=== PATIENT | female | born 1945 | race Caucasian/White ===

== ENCOUNTER → 2020-09-26 09:10 | Outpatient (BNVA) | payer MEDICARE, SELFPAY | PROVIDERS: PCP Internal Medicine; Referring Provider Internal Medicine; Visit Provider Orthopaedic Surgery | DX: Z47.89 Encounter for other orthopedic aftercare (principal); M19.012 Primary osteoarthritis, left shoulder | CPT/HCPCS: 99212 ==

== ENCOUNTER 2025-02-08 08:30 | Outpatient (REF) | payer MEDICARE, SELFPAY ==
--- NOTE | ~2025-02-08 | XR_ITS ---
EXAMINATION: XR WRIST 3 OR MORE VIEWS LEFT HISTORY: M19.012 - Primary osteoarthritis COMPARISON: There are no prior studies available for comparison. FINDINGS: Three views of the left wrist are submitted. Osseous mineralization is normal. There is no fracture or dislocation. The joint spaces are preserved. There is a soft tissue calcification adjacent to the ulnar styloid. XR/XR wrist LT min 3V IMPRESSION: No evidence of fracture or significant degenerative change of the left wrist. Electronically signed by: Nathan Chavez MD 02/08/2025 11:38 AM EDT
--- NOTE | ~2025-02-08 | XR_ITS ---
EXAMINATION: XR SHOULDER 2 OR MORE VIEWS LEFT HISTORY: M25.519 - Pain in unspecified shoulder COMPARISON: Comparison is made with the prior examination dated 05/30/2020. FINDINGS: Three views of the left shoulder are submitted. Osseous mineralization is normal. There is no fracture or dislocation. Again seen is severe osteoarthritis of the glenohumeral joint with joint space narrowing and osteophyte formation. There is mild to moderate osteoarthritis of the AC joint. The soft tissues are unremarkable. 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 Electronically signed by: Nathan Chavez MD 02/08/2025 03:41 PM EDT
== END 2025-02-08 08:31 | disposition home or self-care (01) ==
LOC: HO.HOSX 08:30
PROVIDERS: PCP Internal Medicine; Visit Provider Orthopaedic Surgery
DX: M19.012 Primary osteoarthritis, left shoulder (principal); M25.519 Pain in unspecified shoulder
CPT/HCPCS: 20610; 73030; 73110; 99202; J0665; J1100; J2003

== ENCOUNTER 2025-02-08 08:30 | Outpatient (AMB) | payer MEDICARE, SELFPAY ==
--- NOTE | 2025-02-08 08:33 | MHC.OFFVIS ---
Vital Signs 02/08/25 08:51 Height 5 ft 4 in Weight 180 lb BMI 30.9 Intake Visit Reasons: New Pt - Hx of Left shoulder 07/03/20 Intake Note: Cady is a 79 year old left hand dominant female who presents today as a new patient with complaints of Left shoulder pain. Hx of Left shoulder Arthroscopy 07/03/2020 NE. Patient reports that she did have relief after the surgery. Her pain returned about 6 months ago. Denies any injury. She has increased pain with ROM and worse at the end of the day. She takes Tylenol / Ibuprofen PRN Pain. Allergies No Known Allergies [No Known Allergies*] Allergy (Unverified 02/08/25 08:54) SEASONAL Allergy (Unknown, Uncoded 02/08/25 08:54) Unknown HPI HPI New Pt - Hx of Left shoulder 07/03/20: Details: 79 yo with right shoulder OA who underwent a shoulder in 2019. THis was helpful but her pain and motion have been worsening over the past year. She has difficuolty raising her right hand to her mouth. 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 She has pain at night. [facility] Medical History (Updated 02/08/25 @ 08:39 by Nimesh Tolliver MD) Primary osteoarthritis, left shoulder Hypertension Loose body in left shoulder Surgical History (Updated 09/26/20 @ 09:17 by KELLY Rooney) S/P arthroscopy of left shoulder (~07/03/20) Family History (Updated 09/25/20 @ 15:05 by Mya Morataya CMA) Father No problems noted. Mother No problems noted. Social History (Updated 09/25/20 @ 15:06 by Mya Morataya CMA) Current occupational status: retired Current occupation: Right Handed Physical Exam Vital Signs: BMI result Body Mass Index 30.9 Extrem Other: 70/100 neg lift off neg EC Office Procedures Joint Inj/Aspir; Non-Pain Clin Joint Injection/Drain Details: Injected 1 mL of Decadron and 3 mL 1% lidocaine and 3 mL of 0.25% Marcaine. Site was prepped using aseptic technique. Patient tolerated the procedure well. Shoulders, Hips, Knees, Shoulder Injection Large joint 26836: Left Shoulder Coding Procedure code (CPT) selection complete Results Reviewed Results Reviewed: I personally reviewed relevant radiographs. Severe left shoulder OA I personally reviewed the MR images. Assessment & Plan Assessment & Plan (1) Primary osteoarthritis, left shoulder: Code(s): M19.012 - Primary osteoarthritis, left shoulder Category: Medical Plan: Cady is an active 79 yo with Shoulder OA. She is active and a regular bowler. We discussed reatment options. We discussed surgery which would be a shoulder arthroplasty. She wants to be able to bowl in July and I think that might be too soon if we were to operate in April. I discussed injections which whe would like and so we injected her left shoulder. She will follow up with me in 3 months. Orders: Orders XR wrist LT min 3V 02/08/25 M19.012 - Primary osteoarthritis, left shoulder XR shoulder LT min 2V 02/08/25 M25.519 - Pain in unspecified shoulder Coding Level of Care Code New Pt Level 3 (57824) Diagnoses Primary osteoarthritis, left shoulder M19.012 CPT Codes Shoulders, Hips, Knees, - Shoulder Injection Large joint : Left Shoulder ([id number])
--- OUTSIDE RECORDS SUMMARY | 2025-02-08 08:47 | XMS_ITS | Clinical Summary ---
Author Organization [employer] Address [address] [place] [address] Care Team Providers Care Band Nailer Name Role Phone Unavailable Primary Care Provider Unavailabl e Social History Tobacco Use Types Packs/Day Years Used Date Smoking Tobacco: Never Assessed Comments Unknown Sex and Gender Information Value Date Recorded Sex Assigned at Not on file Legal Sex Female 9:13 AM EDT Gender Identity Not on file Sexual Orientation Not on file Plan of Treatment Health Maintenance Due Date Last Done Comments Depression Screening 1945 Lipid Panel 1945 SDOH Screening 1945 Alcohol/Substance Use Screening 1957 Tobacco Screening 1957 Hepatitis C Screening 1963 DTaP/Tdap/Td Vaccines (1 - Tdap) 1964 Pneumococcal Vaccine: 50+ Years (1 of 1 - PCV) 1995 Zoster Vaccines (1 of 2) 1995 RSV Patients and Patients Aged 60 years or older (1 - 1-dose 75+ series) 2020 COVID-19 Vaccine ( - season) 2024 10/06/2022, 01/21/2021, 12/30/2020 Influenza Vaccine (#1) 2024 3, 08/20/2022, 07/25/2021, Additional history exists HIB Vaccines Aged Out No longer eligi ble based on patient's age to complete this topic HPV Vaccines Aged Out No longer eligi ble based on patient's age to complete this topic Hepatitis A Vaccines Aged Out No long er eligible based on patient's age to complete this topic Hepatitis B Vaccines Aged Out No long er eligible based on patient's age to complete this topic IPV Vaccines Aged Out No longer eligi ble based on patient's age to complete this topic Meningococcal Vaccine Aged Out No sid payton eligible based on patient's age to complete this topic RSV under 20 months Aged Out No longe r eligible based on patient's age to complete this topic Rotavirus Vaccines Aged Out No longer eligible based on patient's age to complete this topic Insurance [facility] [place] [address]
--- OUTSIDE RECORDS SUMMARY | 2025-02-08 08:47 | XMS_ITS | Clinical Summary ---
Author Organization [facility] Address [address] [place] [address] Care Team Providers Care Bulking Machine Operator Name Role Phone Cornelius Hughes MD Primary Care Provider [phone] Allergies Active Allergy Reactions Criticality Noted Date Comments Seasonal 03/29/2019 Medications Medication Sig Dispensed Refills Start Date End Date Status lisinopril-hydroCHLOROt hiazide (PRINZIDE,ZESTORETIC) tablet 10-12.5 mg 0 01/04/2019 Active Guwtrtikhvn-Zasyjnieu-R it C-Mn (GLUCOSAMINE 1500 COMPLEX PO) Take by mouth. 0 Acti ve fexofenadine (TOMASA ALLERGY) 180 MG tablet Take 180 mg by mouth daily. 0 Active Misc Natural Products (LUTEIN 20 PO) Take by mouth. 0 Active Active Problems Problem Noted Date Diagnosed Date Wart left hand 06/05/2020 Impingement syndrome of left shoulder region Right carpal tunnel syndrome 03/29/2019 Ganglion cyst of flexor tendon sheath of ring fi nger, right 02/01/2019 Resolved Problems Problem Noted Date Diagnosed Date Resolved Date Adhesive capsulitis of left shoulder 04/19/2019 07/20/2019 Trigger finger, left ring finger 02/01/2019 06/05/2020 Left carpal tunnel syndrome 02/01/2019 06/05/2020 Social History Tobacco Use Types Packs/Day Years Used Date Smoking Tobacco: Never Smokeless Tobacco: Never Alcohol Use Standard Drinks/Week Comments No 0 (1 standard drink = 0.6 oz pur e alcohol) Sex and Gender Information Value Date Recorded Sex Assigned at Not on file Gender Identity Not on file Sexual Orientation Not on file Last Filed Vital Signs Vital Sign Reading Time Taken Comments Blood Pressure - - Pulse - - Temperature - - Respiratory Rate - - Oxygen Saturation - - Inhaled Oxygen Concentration - - Weight 84.8 kg (187 lb) 07/20/2019 8:28 AM EDT Height 162.6 cm (5' 4 ) 07/20/2019 8:28 AM EDT Body Mass Index 32.1 07/20/2019 8:28 AM EDT Plan of Treatment Health Maintenance Due Date Last Done Comments Hepatitis C Screening 1945 COVID-19 Vaccine (#1) 05/31/1946 Depression Screening 1957 BMI Counseling 1963 Preventative Health Evaluation 1963 DTap / Tdap / Td (1 - Tdap) 1964 Shingrix-Zoster Vaccine (1 of 2) 1995 Fall Risk Assessment 2010 Osteoporosis Screening (DEXA Scan) 2010 Pneumococcal Vaccine (1 of 1 - PCV) 2010 RSV Adult > 60+ Yrs or Pregn ant (1 - 1-dose 75+ series) 2020 Influenza Vaccine (#1) 2024 Hepatitis B Vaccines Aged Out No long er eligible based on patient's age to complete this topic RSV Ped < 20 months Aged Out No longe r eligible based on patient's age to complete this topic Care Teams Bulking Machine Operator Relationship Specialty Start Date End Date Cornelius Hughes MD [address] [address] PCP - General Internal Medicine 01/17/19
--- OUTSIDE RECORDS SUMMARY | 2025-02-08 08:47 | XMS_ITS | Clinical Summary ---
Author Organization [facility] Address [address] [place] [address] Phone Care Team Providers Care Call Center Consultant Name Role Phone Jimenez Snow MD Primary Care Provider Allergies Active Allergy Reactions Criticality Noted Date Comments Other Low 11/19/2023 Seasonal Allergies Medications ibuprofen (ADVIL,MOTRIN) 200 mg tablet Take 1 Tablet by mouth every 6 hours as needed. Active acetaminophen (TYLENOL) 325 mg tablet Take 2 Tablets by mouth every 6 hours as needed. Active hydroCHLOROthia zide 12.5 mg tablet Take 1 tablet (12.5 mg total) by mouth 1 (one) time each day. 90 tablet 1 11/02/2024 Active cholecalciferol (Vitamin D3) 50 mcg (2,000 unit) tablet Take 2 tablets (4,000 Units total) by mouth 1 (one) time each day. 180 tablet 1 11/08/2024 Active Active Problems Problem Noted Date Diagnosed Date Sleep apnea 12/18/2024 CPAP (continuous positive airway pressure) luis e doty 12/18/2024 Prediabetes 11/08/2024 Hypercholesterolemia 11/08/2024 Elevated alkaline phosphatase level 11/08/2024 Vitamin D insufficiency 11/08/2024 Obesity (BMI 30.0-34.9) 08/30/2024 Alkaline phosphatase elevation 03/02/2023 Anxiety 03/02/2023 Impaired fasting glucose 03/02/2023 Mixed hyperlipidemia 03/02/2023 Osteopenia 03/02/2023 Primary hypertension 03/02/2023 Pituitary adenoma 03/02/2023 Encounters Date Type Department Care Team Description 12/19/2024 Telephone Gastroenterology - [address] [facility] [address] [place] [address] [place] 12/18/2024 10:07 AM EST Anesthesia Event [facility] Endoscopy [address] [place] [address] Anastasiia Bender MD Abrokwah, Foster Myles G, INCINERATOR OPERATOR 12/18/2024 8:59 AM EST - 12/18/2024 11:59 PM EST Hospital Encounter [facility] Endoscopy [address] [place] [address] Moon Hussein MD Dasilva, Alen Ellis MD Hx of colonic polyps Discharge Disposition: Home or Self Care from Last 3 Months Immunizations Name Administration Dates Next Due Influenza trivalent, 0.5mL (Fluad) 65yo and olde r 08/20/2022,07/25/2021 Influenza trivalent, 0.5mL, preservative free (Fluarix; FluLaval; Fluzone) ages 6mo and older (Afluria) 3 years and older 07/31/2020 Influenza, Unspecified 08/03/2023 Pfizer (ages 12 & older) Bivalent, COVID-19 09/22 Pfizer SARS-CoV-2 COVID-19, mRNA, LNP-S, preservative free 01/21/2021,12/30/2020 Surgical History Surgery Date Site/Laterality Comments OTHER SURGICAL HISTORY PROCEDURE: HISTORY OTHER; COMMENT: carpal tunnel left side OTHER SURGICAL HISTORY PROCEDURE: HISTORY OTHER; COMMENT: shoulder surgery of the left side BREAST BIOPSY Left PROCEDURE: BX BREAST; PERC NEEDLE CORE W/IMAG GUID; COMMENT: cyst years ago Medical History Medical History Date Comments Essential (primary) hypertension DX:Essential (primary) hypertension HLD (hyperlipidemia) DX:HLD (hyp erlipidemia) Impaired fasting blood sugar DX: Impaired fasting blood sugar Anxiety disorder DX:Anxiety diso rder Osteopenia DX:Osteopenia Pituitary adenoma (CMS/HCC) DX:P ituitary adenoma (HCC) Alkaline phosphatase elevation D X:Alkaline phosphatase elevation Family History Medical History Relation Name Comments Arthritis Father Other: alzheimer Father Heart attack Mother Stroke Mother Other: meningioma Sister Relation Name Status Comments Father Mother Sister Social History Tobacco Use Types Packs/Day Years Used Date Smoking Tobacco: Never Smokeless Tobacco: Never Tobacco Cessation:Counseling Given: Not Answered Alcohol Use Standard Drinks/Week Comments Never 0 (1 standard drink = 0.6 oz pur e alcohol) Housing Instability Answer Date Recorde d Are you worried that in the next 2 months you may not have stable housing? No 11/02/2024 Food Access & Nutrition Answer Date Rec orded Do you have access to a vari ety of food including fruits and vegetables? Yes 11/02/2024 Access to Healthcare Answer Date Record ed Within the last 3 months, ho w many times did you visit the emergency department for your medical care? 0 11/02/2024 Health Literacy Answer Date Recorded How often do you need to hav e someone help you when you read instructions, pamphlets, or other written material from your doctor or pharmacy? Never 11/02/2024 Caregiver: How often do you need to have someone help you when you read instructions, pamphlets, or other written material from your doctor or pharmacy? Not on file 11/02/2024 Financial Risk Answer Date Recorded How hard is it for you to pa y for the very basics like food, housing, medical care, and air conditioning / heating? Somewhat hard 11/02/2024 Transportation Answer Date Recorded Has the lack of transportati on kept you from meetings, work, or from getting things needed for daily living? No Has the lack of transportati on kept you from medical appointments or from getting medications? No 11/02/2024 Social Isolation Answer Date Recorded How often do you feel lonely or isolated from those around you? Sometimes 11/02/2024 Food Risk Answer Date Recorded Within the past 12 months we worried whether our food would run out before we got money to buy more. Not asked 024 Within the past 12 months th e food we bought just didn't last and we didn't have money to get more. Sometimes true 11/02/2024 Dependent Care Answer Date Recorded Do you need help finding or paying for care for your loved ones. For example, child and youth program assistant or elderly care for an older adult? No 11/02/2024 Education Answer Date Recorded Do you think completing more education or training, like finishing a GED, going to college, or learning a trade, would be helpful for you? N/A 11/02/2024 Employment and Income Answer Date Recor ded During the last four weeks, have you been actively looking for work? No 11/02/2024 Living Situation Answer Date Recorded What is your living situation? 1 01/03/2024 Interpersonal Safety Answer Date Record ed Physical Abuse 12/18/2024 Verbal Abuse 12/18/2024 Comments No Sex and Gender Information Value Date Recorded Sex Assigned at Female 12/07/2024 8:43 AM EST Legal Sex Female 9:56 AM EST Gender Identity Female 12/07/2024 8:43 AM EST Sexual Orientation Straight 12/07/2024 8: 43 AM EST Obstetrics History Para Term AB IAB SAB Ectopic Multiple Livin g Live Births 0 0 0 0 Last Filed Vital Signs Vital Sign Reading Time Taken Comments Blood Pressure 135/75 12/18/2024 10:47 AM EST Pulse 62 12/18/2024 10:47 AM EST Temperature 36.4 ??C (97.6 ??F) 12/18/2024 10:[address] Respiratory Rate 18 12/18/2024 10:47 AM EST Oxygen Saturation 94% 12/18/2024 10:47 AM EST Inhaled Oxygen Concentration - - Weight 83.9 kg (185 lb) 12/18/2024 9:40 AM EST Height 162.6 cm (5' 4 ) 12/18/2024 9:40 AM EST Body Mass Index 31.76 12/18/2024 9:40 AM EST Plan of Treatment Upcoming Encounters Date Type Department Care Team (Late st Contact Info) Description 05/03/2025 9:30 AM EDT Office Visit Adult Medicine [facility] [address] [place] [address] Jimenez Snow MD [address] [place] [address] Health Maintenance Due Date Last Done Comments Medicare Annual Wellness Visit 10/25/2022 Osteoporosis Screening (Bone Density Screening) 08/24/2025 08/24/2023, 08/14/2021 Depression Screening 11/02/2025 11/02/2024 Social Influencers of Health Screening 11/02/2025 11/02/2024 Hypertension/CHF/CAD Annual BMP Blood Test 11/08/2025 11/08/2024, 05/19/2024, 05/19/2024 Falls Risk Assessment 12/18/2025 12/18/2024 Cholesterol Screening (Lipid Panel) 11/08/2029 11/08/2024, 05/19/2024, 05/19/2024 COVID-19 Vaccine Completed 08/03/2024, , 10/06/2022, Additional history exists Influenza Vaccine Completed 08/03/2024, , 08/03/2023, Additional history exists Hepatitis C Screening Completed 11/08/2024 DTaP,Tdap,and Td Vaccines Discontinued HIB Vaccines Aged Out No longer eligi [...] on patient's age to complete this topic MMR Vaccines Aged Out No longer eligi ble based on patient's age to complete this topic Meningococcal ACWY Vaccine Aged Out N o longer eligible based on patient's age to complete this topic Meningococcal B Vacine Aged Out No lo nger eligible based on patient's age to complete this topic Pneumococcal Vaccine: 50+ Years Discontinued RSV Immunization Patients 60+ Years Old Discontinued RSV Immunization Patients Under 20 months Aged Out No longer eligible based on patient's age to complete this topic Varicella Vaccines Aged Out No longer eligible based on patient's age to complete this topic Zoster Vaccines Discontinued Procedures Procedure Name Priority Date/Time Associated Diagnosis Comments COLONOSCOPY Routine 12/18/2024 10:26 AM EST Hx of colonic polyps TISSUE EXAM Routine 12/18/2024 10:19 AM EST Hx of colonic polyps HEPATITIS C ANTIBODY Routine 11/08/2024 9:50 AM EST Need for hepatitis C screening test COMPREHENSIVE METABOLIC PANEL Routine 11/08/2024 9:50 AM EST Primary hypertension LIPID PANEL WITH REFLEX TO DIRECT LDL Routine 11/08/2024 9:50 AM EST Primary hypertension DXA BONE DENSITY STUDY 1+ SITS AXIAL SKEL Routine 08/24/2023 9:46 AM EDT Other specified disorders of bone density and structure, unspecified site from Last 3 Months or Most Recently Relevant to Health Maintenance Results * COLONOSCOPY Anesthesia - MAC; [facility] ENDOSCOPY (12/18/2024 10:26 AM EST) Anatomical Region Laterality Modality Other 12/18/2024 10:0 5 AM EST Impressions 12/18/2024 10:28 AM EST - The examined portion of the ileum was normal. ? - One 3 mm polyp in the ascending colon, removed with ? a cold snare. Resected and retrieved. ? - Diverticulosis in the sigmoid colon. ? - Internal hemorrhoids. Recommendation: ?- Await pathology results. ? - Repeat colonoscopy is not recommended for ? surveillance. Narrative 12/18/2024 10:28 AM EST [facility] GI Patient Name: Cady Martinez Procedure Date: 12/18/2024 10:05 AM Date of : 1945 Age: 79 Gender: Female Note Status: Finalized Attending MD: Moon Hussein MD, Procedure Date No Time: 12/18/2024 Procedure: ? Colonoscopy Indications: ? High risk colon cancer surveillance: Personal history ? of colonic polyps Providers: ? Moon Hussein MD Referring MD: ?ARNIE Lugo Medicines: ? Propofol per Anesthesia Complications: ? No immediate complications. Estimated Blood Loss: ? Estimated blood loss: none. Procedure: ? Pre-Anesthesia Assessment: ? - ASA Grade Assessment: III - A patient with severe ? systemic disease. ? After I obtained informed consent, the scope was ? passed under direct vision. Throughout the procedure, ? the patient's blood pressure, pulse, and oxygen ? saturations were monitored continuously.The Olympus ? Pediatric Colonoscope was introduced through the anus ? and advanced to the terminal ileum. The colonoscopy ? was performed without difficulty. The patient ? tolerated the procedure well. The quality of the bowel ? preparation was good. Findings: ?The perianal and digital rectal examinations were ? normal. ? The terminal ileum appeared normal. ? A 3 mm polyp was found in the ascending colon. The ? polyp was sessile. The polyp was removed with a cold ? snare. Resection and retrieval were complete. ? Multiple small-mouthed diverticula were found in the ? sigmoid colon. ? Internal hemorrhoids were found during retroflexion. ? The hemorrhoids were Grade I (internal hemorrhoids ? that do not prolapse). Procedure Code(s): ? --- Professional --- ? 04391, Colonoscopy, flexible; with removal of ? tumor(s), polyp(s), or other lesion(s) by snare ? technique Diagnosis Code(s): ? --- Professional --- ? Z86.010, Personal history of colonic polyps ? D12.2, Benign neoplasm of ascending colon CPT copyright 2020 [employer]. All rights reserved. The codes documented in this report are preliminary and upon medical coder review may be revised to meet current compliance requirements. Moon Hussein MD 12/18/2024 10:28:45 AM This report has been signed electronically.Moon Hussein MD Number of Addenda: 0 Note Initiated On: 12/18/2024 10:05 AM Scope In: Scope Out: ? Endoscopy Department at [facility] - [address] [place] [address], ? [place] [address] Procedure Note Moon Hussein MD - 12/18/2024 [facility] GI Patient Name: Cady Martinez Procedure Date: 12/18/2024 10:05 AM Date of : 1945 Age: 79 Gender: Female Note Status: Finalized Attending MD: Moon Hussein MD, Procedure Date No Time: 12/18/2024 Procedure: Colonoscopy Indications: High risk colon cancer surveillance: Personalhistory of colonic polyps Providers: Moon Hussein MD Referring MD: ARNIE Lugo Medicines: Propofol per Anesthesia Complications: No immediate complications. Estimated Blood Loss: Estimated blood loss: none. Procedure: Pre-Anesthesia Assessment: - ASA Grade Assessment: III - A patient with severe systemic disease. After I obtained informed consent, the scope was passed under direct vision. Throughout theprocedure, the patient's blood pressure, pulse, and oxygen saturations were monitored continuously.The Olympus Pediatric Colonoscope was introduced through theanus and advanced to the terminal ileum. The colonoscopy was performed without difficulty. The patient tolerated the procedure well. The quality of thebowel preparation was good. Findings: The perianal and digital rectal examinations were normal. The terminal ileum appeared normal. A 3 mm polyp was found in the ascending colon. The polyp was sessile. The polyp was removed with acold snare. Resection and retrieval were complete. Multiple small-mouthed diverticula were found inthe sigmoid colon. Internal hemorrhoids were found duringretroflexion. The hemorrhoids were Grade I (internal hemorrhoids that do not prolapse). Procedure Code(s): --- Professional --- 43959, Colonoscopy, flexible; with removal of tumor(s), polyp(s), or other lesion(s) by snare technique Diagnosis Code(s): --- Professional --- Z86.010, Personal history of colonic polyps D12.2, Benign neoplasm of ascending colon CPT copyright 2020 [employer]. All rights reserved. The codes documented in this report are preliminary and upon medical coder reviewmay be revised to meet current compliance requirements. Moon Hussein MD 12/18/2024 10:28:45 AM This report has been signed electronically.Moon Hussein MD Number of Addenda: 0 Note Initiated On: 12/18/2024 10:05 AM Scope In: Scope Out: Endoscopy Department at [facility] - [address] [place] [id number] IMPRESSION: - The examined portion of the ileum was normal. - One 3 mm polyp in the ascending colon, removedwith a cold snare. Resected and retrieved. - Diverticulosis in the sigmoid colon. - Internal hemorrhoids. Recommendation: - Await pathology results. - Repeat colonoscopy is not recommended for surveillance. Moon Hussein MD GI~PROCEDURE ORDERABLES Final Result * Tissue exam (12/18/2024 10:19 AM EST) Final Diagnosis Ascending Colon, polyp: Tubular adenoma. 12/19/2024 10:43 AM EST [facility] LAB Gross Description A. Large Intestine, Right/Ascending Colon, polyp: Labeled ascend colon polyp . Received in formalin, is an approximately 0.2 cm, in greatest diameters, soft to rubbery, mckeon, polypoid tissue, which is inked black at the base, admixed with possible food/fecal debris. The specimen is wrapped in paper and submitted in toto in one cassette, one piece, multiple levels. dvb/DG 12/19/2024 10:43 AM EST [facility] Disclaimer Unless otherwise specified, all tissue is 10% NB formalin fixed and paraffin embedded. 12/19/2024 10:43 AM EST [facility] Tissue Ascending colon structure / Unknown 12/18/2024 10:19 AM EST 12/18/2024 12:41 PM EST Moon Hussein MD LAB PATHOLOGY ORDERABLES Final Result Performing Organization Address City/[facility]/ZIP Co de Phone Number [facility] [address] [place] [address], [place] [phone] * Hepatitis C antibody (11/08/2024 9:50 AM EST) [facility] Hepatitis C Antibody Negative Negative LAB CHEMISTRY METHOD 11/08/2024 1:08 PM [facility] Blood Venous blood specimen / Unknown Venipuncture / Unknown 11/08/2024 9:50 AM EST 11/08/2024 9:50 AM EST Jimenez Snow MD LAB BLOOD ORDERABLES F inal Result Performing Organization Address City/[facility]/ZIP Co de Phone Number [facility] [address] [place] [address], [place] [phone] * (ABNORMAL) Lipid panel with reflex to direct LDL (11/08/2024 9:50 AM EST) Pathologist [facility] Cholesterol 237(H) 0 - 200 mg/dL LAB CHEMISTRY METHOD 11/08/2024 1:03 PM [facility] Triglycerides 96 0 - 150 mg/dL LAB CHEMISTRY METHOD 11/08/2024 1:03 PM [facility] HDL 90 >=40 mg/dL LAB CHEMISTRY METHOD 11/08/2024 1:03 PM [facility] LDL Calculated 128(H) 0 - 100 mg/dL LAB CHEMISTRY METHOD 11/08/2024 1:03 PM [facility] VLDL Cholesterol Sam 19.2 mg/dL LAB CHEMISTRY METHOD 11/08/2024 1:03 PM [facility] Non HDL Chol. (LDL+VLDL) 147(H) <145 mg/dL LAB CHEMISTRY METHOD 11/08/2024 1:03 PM [facility] Chol/HDL Ratio 2.6 0.0 - 4.4 LAB CHEMISTRY METHOD 11/08/2024 1:03 PM [facility] Blood Venous blood specimen / Unknown Venipuncture / Unknown 11/08/2024 9:50 AM EST 11/08/2024 9:50 AM EST us Jimenez Snow MD LAB BLOOD ORDERABLES F inal Result [facility] [address] [place] [address], [place] [phone] * (ABNORMAL) Comprehensive metabolic panel (11/08/2024 9:50 AM EST) Sodium 141 133 - 145 mmol/L LAB CHEMISTRY METHOD 11/08/2024 1:03 PM [facility] Potassium 4.0 3.5 - 5.5 mmol/L LAB CHEMISTRY METHOD 11/08/2024 1:03 PM [facility] Chloride 105 96 - 110 mmol/L LAB CHEMISTRY METHOD 11/08/2024 1:03 PM [facility] CO2 30 21 - 32 mmol/L LAB CHEMISTRY METHOD 11/08/2024 1:03 PM [facility] Anion Gap 6 3 - 11 LAB CHEMISTRY METHOD 11/08/2024 1:03 PM [facility] Glucose 105(H) 70 - 100 mg/dL LAB CHEMISTRY METHOD 11/08/2024 1:03 PM [facility] BUN 22 5 - 25 mg/dL LAB CHEMISTRY METHOD 11/08/2024 1:03 PM [facility] Creatinine 0.76 0.50 - 1.10 mg/dL LAB CHEMISTRY METHOD 11/08/2024 1:03 PM [facility] eGFR 80 >=60 mL/min/1. 73m2 LAB CHEMISTRY METHOD 11/08/2024 1:03 PM [facility] Comment:Calculation based on the??Chronic Kidney Disease Epidemiology Collaboration (CKD-EPI) equation refit??without adjustment for race. BUN/Creatinine Ratio 28.9 LAB CHEMISTRY METHOD 11/08/2024 1:03 PM [facility] Calcium 9.7 8.5 - 10.5 mg/dL LAB CHEMISTRY METHOD 11/08/2024 1:03 PM [facility] AST (SGOT) 27 10 - 42 unit/L LAB CHEMISTRY METHOD 11/08/2024 1:03 PM [facility] ALT (SGPT) 29 10 - 60 unit/L LAB CHEMISTRY METHOD 11/08/2024 1:03 PM [facility] Alkaline Phosphatase 506(H) 42 - 121 unit/L LAB CHEMISTRY METHOD 11/08/2024 1:03 PM [facility] Comment:Results verified by repeat testing Total Protein 6.9 6.0 - 8.0 g/dL LAB CHEMISTRY METHOD 11/08/2024 1:03 PM [facility] Albumin 3.6 3.2 - 5.0 g/dL LAB CHEMISTRY METHOD 11/08/2024 1:03 PM [facility] Total Bilirubin 0.7 0.0 - 1.4 mg/dL LAB CHEMISTRY METHOD 11/08/2024 1:03 PM [facility] Blood Venous blood specimen / Unknown Venipuncture / Unknown 11/08/2024 9:50 AM EST 11/08/2024 9:50 AM EST Jimenez Snow MD LAB BLOOD ORDERABLES F inal Result [facility] [address] [place] [address], * DXA BONE DENSITY STUDY 1+ SITS DEMETRI SKATTILA (08/24/2023 9:46 AM EDT) Anatomical Region Laterality Modality Bone Densitometr y 03/02/2023 9:25 AM EDT Narrative 08/24/2023 7:50 PM EDT STUDY: ??DUAL ENERGY X-RAY ABSORPTIOMETRY / DXA REASON FOR EXAM: ?? Female, 77 years old. ??Menopausal/postmenopausal disorder TECHNIQUE: ?? Bone Mineral Density (BMD) measurements of the lumbar spine and left hip were obtained. ?? COMPARISON: None ?? FINDINGS: L1-L3 T score: -1.4. ??This corresponds to osteopenia. Left femoral neck T score: -1.7. ??This corresponds to osteopenia. Left total hip T score: -0.3. ??This corresponds to osteopenia. FRAX score: 10 year risk of major osteoporotic fracture Major 12 %, 10 year risk of hip fracture Hip 2.7 % IMPRESSION: IMPRESSION: Osteopenia Reference Information: The T-score is the number of standard deviations above or below the standard which is normal for young adults at their peak bone mineral density. The World Health Organization (WHO) interprets the T-scores as follows: Above ??-1 ?Normal bone density Between -1 and -2.5 ?Osteopenia Equal to / or below -2.5 ??Osteoporosis As a practical clinical guideline, osteopenia may be graded as follows: Mild -1 through -1.5 Moderate -1.6 ??through -2.0 Severe ??-2.1 ??through -2.4 References: 1. ??NIH Osteoporosis and Related Bone Diseases http://www.osteo.org 2. ??International Society for Clinical Densitometry http://www.iscd.org 3. ??National Osteoporosis Foundation http://www.nof.org Procedure Note Indira Chino - 12/27/2023 STUDY: DUAL ENERGY X-RAY ABSORPTIOMETRY / DXA REASON FOR EXAM: Female, 77 years old. Menopausal/postmenopausaldisorder TECHNIQUE: Bone Mineral Density (BMD) measurements of the lumbar spineand left hip were obtained. COMPARISON: None FINDINGS: L1-L3 T score: -1.4. This corresponds to osteopenia. Left femoral neck T score: -1.7. This corresponds to osteopenia. Left total hip T score: -0.3. This corresponds to osteopenia. FRAX score: 10 year risk of major osteoporotic fracture Major 12 %, 10year risk of hip fracture Hip 2.7 % IMPRESSION: IMPRESSION: Osteopenia Reference Information: The T-score is the number of standard deviations above or below thestandard which is normal for young adults at their peak bone mineral density. The World HealthOrganization (WHO) interprets the T-scores as follows: Above -1 Normal bone density Between -1 and -2.5 Osteopenia Equal to / or below -2.5 Osteoporosis As a practical clinical guideline, osteopenia may be graded as follows: Mild -1 through -1.5 Moderate -1.6 through -2.0 Severe -2.1 through -2.4 References: 1. NIH Osteoporosis and Related Bone Diseases http://www.osteo.org 2. International Society for Clinical Densitometry http://www.iscd.org 3. National Osteoporosis Foundation http://www.nof.org Jimenez THOMAS DXA PROCEDURES Fin al Result from Last 3 Months or Most Recently Relevant to Health Maintenance Insurance [employer] Care Teams Call Center Consultant Relationship Specialty Start Date End Date Jimenez Snow MD [address] [place] [address] PCP - General 10/27/22
[2025-02-08 08:51] VITALS: BMI 30.9
== END 2025-02-08 09:46 | disposition home or self-care (01) ==
LOC: HO.HOS 08:31
PROVIDERS: PCP Internal Medicine; Visit Provider Orthopaedic Surgery
DX: M19.012 Primary osteoarthritis, left shoulder (principal)
CPT/HCPCS: 20610; 99203

== ENCOUNTER → 2025-02-08 08:44 | Outpatient (BNV) | payer MEDICARE, SELFPAY | PROVIDERS: PCP Internal Medicine; Visit Provider Radiology Diagnostic Radiology | DX: M25.512 Pain in left shoulder (principal); M25.532 Pain in left wrist | CPT/HCPCS: 73030; 73110 ==

== ENCOUNTER 2025-05-17 09:14 | Outpatient (AMB) | payer MEDICARE, SELFPAY ==
--- NOTE | 2025-05-17 09:22 | MHC.OFFVIS ---
Intake Visit Reasons: OV - Left Shoulder OA - Last injection 01/2025 Intake Note: Cady is a 79 year old left hand dominant female who presents today for a follow up of her left shoulder. Hx of Left Shoulder 07/03/2020. At her last visit in January we injected the left shoulder. Surgery was discussed but the patient is a regular bowler and would like to be able to bowl in july. Patient reports that this injection was very helpful for about 1 months and at this time she feels that her pain has improved during the day but is felt significantly at night. If she taked anything to help with her pain she takes Tylenol or Ibuprofen. Allergies No Known Allergies (No Known Allergies*) Allergy (Unverified 02/08/25 08:54) SEASONAL Allergy (Unknown, Uncoded 02/08/25 08:54) Unknown HPI HPI OV - Left Shoulder OA - Last injection 01/2025: Details: Cady is a 79 year old left hand dominant female who presents today for a follow up of her left shoulder. Hx of Left Shoulder 07/03/2020. At her last visit in January we injected the left shoulder. Surgery was discussed but the patient is a regular bowler and would like to be able to bowl in july. Patient reports that this injection was very helpful for about 1 months and at this time she feels that her pain has improved during the day but is felt significantly at night. If she takes anything to help with her pain she takes Tylenol or ibuprofen. Today she would like to discuss conservative vs non conservative treatment and the associated reovery period. She states she is having a difficult time getting through her day and engaging in her daily activities without pain and the pain at night is very difficult for her to sleep. She is left-hand dominant. [facility] Medical History (Updated 02/08/25 @ 08:39 by Nimesh Tolliver MD) Primary osteoarthritis, left shoulder Hypertension Loose body in left shoulder Surgical History (Updated 09/26/20 @ 09:17 by KELLY Rooney) S/P arthroscopy of left shoulder (~07/03/20) Family History (Updated 09/25/20 @ 15:05 by Mya Morataya CMA) Father No problems noted. Mother No problems noted. 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 Active abduction with recruitment to 80 degrees. Forward flexion to 110. Negative empty can. Results Reviewed Results Reviewed: I personally reviewed relevant radiographs. Severe glenohumeral OA Assessment & Plan Assessment & Plan (1) Primary osteoarthritis, left shoulder: Code(s): M19.012 - Primary osteoarthritis, left shoulder Category: Medical Plan: This is a 79-year-old woman with severe arthritis of the left shoulder. She is healthy and active. She enjoys many activities including bowling. She feels that her shoulders preventing her from getting through her day without pain in his diminishing quality of her life and she would like to have it fixed. We did do a shoulder arthroscopy on her many years ago which was helpful but postoperatively her insurance did not pay for physical therapy. Now I recommend shoulder arthroplasty. I discussed the surgery with her. I discussed the risks, benefits and alternatives. I explained that the bowling is a activity that may take her up to 6 months to return to and there may be some limitations depending on how she feels. I am confident however that her complaints of pain and difficulty with getting her hand to the back of her head and engaging in daily activities would be improved with surgery. I explained to her the importance of the PT and we will make sure that her insurance company covers physical therapy. She will speak with Haley and we will try to get this done in the next 3 months. Coding Level of Care Code Est Pt Level 4 (75822) Diagnoses Primary osteoarthritis, left shoulder M19.012
--- OUTSIDE RECORDS SUMMARY | 2025-05-17 10:07 | XMS_ITS | Clinical Summary ---
Author Organization [facility] Address [address] [place] [address] Phone Care Team Providers Care Debt And Budget Counselor Name Role Phone Jimenez Snow MD Primary Care Provider Allergies Active Allergy Reactions Criticality Noted Date Comments Other Low 11/19/2023 Seasonal Allergies Medications ibuprofen (ADVIL,MOTRIN) 200 mg tablet Take 1 Tablet by mouth every 6 hours as needed. Active acetaminophen (TYLENOL) 325 mg tablet Take 2 Tablets by mouth every 6 hours as needed. Active cholecalciferol (Vitamin D3) 50 mcg (2,000 unit) tablet Take 2 tablets (4,000 Units total) by mouth 1 (one) time each day. 180 tablet 1 11/08/2024 Active hydroCHLOROthia zide 12.5 mg tablet TAKE 1 TABLET BY MOUTH ONCE DAILY 100 tablet 2 02/19/2025 Active Active Problems Problem Noted Date Diagnosed Date Sleep apnea 12/18/2024 CPAP (continuous positive airway pressure) depen dence 12/18/2024 Prediabetes 11/08/2024 Assessment & Plan (05/03/2025 3:47 PM EDT): Orders: Hemoglobin A1c; Future Hypercholesterolemia 11/08/2024 Assessment & Plan (05/03/2025 3:47 PM EDT): Orders: Comprehensive metabolic panel; Future CBC and differential; Future Hemoglobin A1c; Future Lipid panel with reflex to direct LDL; Future Elevated alkaline phosphatase level 11/08/2024 Vitamin D insufficiency 11/08/2024 Assessment & Plan (05/03/2025 3:47 PM EDT): Orders: Vitamin D 25 hydroxy; Future Obesity (BMI 30.0-34.9) 08/30/2024 Alkaline phosphatase elevation 03/02/2023 Anxiety 03/02/2023 Impaired fasting glucose 03/02/2023 Mixed hyperlipidemia 03/02/2023 Assessment & Plan (05/03/2025 3:47 PM EDT): Orders: Comprehensive metabolic panel; Future CBC and differential; Future Hemoglobin A1c; Future Lipid panel with reflex to direct LDL; Future Osteopenia 03/02/2023 Assessment & Plan (05/03/2025 3:47 PM EDT): Orders: Vitamin D 25 hydroxy; Future BD Bone Density DXA Axial Skeleton; Future Primary hypertension 03/02/2023 Assessment & Plan (05/03/2025 3:47 PM EDT): Orders: Comprehensive metabolic panel; Future CBC and differential; Future Hemoglobin A1c; Future Lipid panel with reflex to direct LDL; Future Pituitary adenoma ([facility] V24, [facility] V28) 09/2023 Other viral warts 06/05/2020 Impingement syndrome of left shoulder region Right carpal tunnel syndrome 03/29/2019 Ganglion cyst of flexor tendon sheath of finger, right 02/01/2019 Encounters Date Type Department Care Team Description 05/03/2025 1:30 PM EDT Office Visit Adult Medicine [address] [address] Jimenez Snow MD Medicare annual wellness visit, subsequent (Primary Dx); Mixed hyperlipidemia; Hypercholesterolemia; Primary hypertension; Osteopenia of multiple sites; Vitamin D insufficiency; Encounter for vitamin deficiency screening; Prediabetes; Encounter for osteoporosis screening in asymptomatic postmenopausal patient from Last 3 Months Immunizations Name Administration [...] DX:Anxiety diso rder Osteopenia DX:Osteopenia Pituitary adenoma ([facility]/HCC V24, CMS/HCC V28) DX:Pituitary adenoma ([facility]) Alkaline phosphatase elevation D X:Alkaline phosphatase elevation [...] you may not have stable housing? No 05/03/2025 Food Access & Nutrition Answer Date Rec orded Do you have access to a vari ety of food including fruits and vegetables? Yes 05/03/2025 Access to Healthcare Answer Date Record ed Within the last 3 months, ho w many times did you visit the emergency department for your medical care? 0 05/03/2025 Health Literacy Answer Date Recorded How often do you need to hav e someone help you when you read instructions, pamphlets, or other written material from your doctor or pharmacy? Never 05/03/2025 Caregiver: How often do you need to have someone help you when you read instructions, pamphlets, or other written material from your doctor or pharmacy? Not on file 05/03/2025 Financial Risk Answer Date Recorded How hard is it for you to pa y for the very basics like food, housing, medical care, and air conditioning / heating? Somewhat hard 05/03/2025 Transportation Answer Date Recorded Has the lack of transportati on kept you from meetings, work, or from getting things needed for daily living? No Has the lack of transportati on kept you from medical appointments or from getting medications? No 05/03/2025 Social Isolation Answer Date Recorded How often do you feel lonely or isolated from those around you? Sometimes 05/03/2025 Food Risk Answer Date Recorded Within the past 12 months we worried whether our food would run out before we got money to buy more. Sometimes true 025 Within the past 12 months th e food we bought just didn't last and we didn't have money to get more. Never true 05/03/2025 Dependent Care Answer Date Recorded Do you need help finding or paying for care for your loved ones. For example, child care assistant or elderly care for an older adult? No 05/03/2025 Education Answer Date Recorded Do you think completing more education or training, like finishing a GED, going to college, or learning a trade, would be helpful for you? N/A 05/03/2025 Employment and Income Answer Date Recor ded During the last four weeks, have you been actively looking for work? No 05/03/2025 Living Situation Answer Date Recorded What is your living situation? 0 05/03/2025 Interpersonal Safety Answer Date Record ed Physical [...] Sign Reading Time Taken Comments Blood Pressure 106/61 05/03/2025 1:46 PM EDT Pulse 70 05/03/2025 1:46 PM EDT Temperature 37.1 C (98.8 F) 05/03/2025 1:46 PM EDT Respiratory Rate 15 05/03/2025 1:46 PM EDT Oxygen Saturation 95% 05/03/2025 1:46 PM EDT Inhaled Oxygen Concentration - - Weight 87.9 kg (193 lb 12.8 oz) 05/03/2025 1:46 PM EDT Height 162.6 cm (5' 4 ) 05/03/2025 1:46 PM EDT Body Mass Index 33.27 05/03/2025 1:46 PM EDT Plan of Treatment Upcoming Encounters Date Type Department Care Team (Late st Contact Info) Description 11/06/2025 9:30 AM EST Office Visit Adult Medicine [facility] [address] [place] [address] Jimenez nSow MD [address] [place] [address] Health Maintenance Due Date Last Done Comments COVID-19 Vaccine ( season) 2025 08/03/2024, 08/10/2023, 10/06/2022, Additional history exists Influenza Vaccine (Season Ended) 2025 08/03/2023, 08/20/2022, 07/25/2021, Additional history exists Osteoporosis Screening (Bone Density Screening) 08/24/2025 08/24/2023, 08/14/2021 Hypertension/CHF/CAD Annual BMP Blood Test 11/08/2025 11/08/2024, 05/19/2024, 05/19/2024 Depression Screening 05/03/2026 05/03/2025 Falls Risk Assessment 05/03/2026 05/03/2025, 025 Medicare Annual Wellness Visit 05/03/2026 05/03/2025 Social Influencers of Health Screening 05/03/2026 05/03/2025 Cholesterol Screening (Lipid Panel) 11/08/2029 11/08/2024, 05/19/2024, 05/19/2024 Hepatitis C Screening Completed 11/08/2024 DTaP,Tdap,and Td [...] age to complete this topic Meningococcal B Vaccine Aged Out No l onger eligible based on patient's age to complete this topic Pneumococcal Vaccine: 50+ Years Discontinued RSV Immunization Adult Patients Discontinued RSV Immunization Patients Under 20 months Aged Out No longer eligible based on patient's age to complete this topic Varicella Vaccines Aged Out No longer eligible based on patient's age to complete this topic Zoster Vaccines Discontinued Procedures Procedure Name Priority Date/Time Associated Diagnosis Comments HEPATITIS C ANTIBODY Routine 11/08/2024 9:50 AM [...] Recently Relevant to Health Maintenance Results * Hepatitis C antibody (11/08/2024 9:50 AM EST) Hepatitis C Antibody Negative Negative LAB CHEMISTRY METHOD 11/08/2024 1:08 PM EST [facility] Blood Venous blood specimen / Unknown Venipuncture / Unknown 11/08/2024 9:50 AM EST 11/08/2024 9:50 AM EST us Jimenez Snow MD LAB BLOOD ORDERABLES F inal Result [facility] [address] [place] [address], [place] [phone] * (ABNORMAL) Lipid panel with reflex to direct LDL (11/08/2024 9:50 AM EST) Cholesterol 237(H) 0 - 200 mg/dL LAB CHEMISTRY METHOD 11/08/2024 1:03 PM [facility] Triglycerides 96 0 - 150 mg/dL LAB CHEMISTRY METHOD 11/08/2024 1:03 PM [facility] HDL 90 >=40 mg/dL LAB CHEMISTRY METHOD 11/08/2024 1:03 PM [facility] LDL Calculated 128(H) 0 - 100 mg/dL LAB CHEMISTRY METHOD 11/08/2024 1:03 PM [facility] VLDL Cholesterol Sam 19.2 mg/dL LAB CHEMISTRY METHOD 11/08/2024 1:03 PM [facility] Non HDL Chol. (LDL+VLDL) 147(H) <145 mg/dL LAB CHEMISTRY METHOD 11/08/2024 1:03 PM [facility] Chol/HDL Ratio 2.6 0.0 - 4.4 LAB CHEMISTRY METHOD 11/08/2024 1:03 PM [facility] Blood Venous blood specimen / Unknown Venipuncture / Unknown 11/08/2024 9:50 AM EST 11/08/2024 9:50 AM EST Jimenez Snow MD LAB BLOOD ORDERABLES F inal Result [facility] [address] [place] [address], [place] [phone] * (ABNORMAL) Comprehensive metabolic panel (11/08/2024 9:50 AM EST) Sodium 141 133 - 145 mmol/L LAB CHEMISTRY METHOD 11/08/2024 1:03 PM [facility] Potassium 4.0 3.5 - 5.5 mmol/L LAB CHEMISTRY METHOD 11/08/2024 1:03 PM [facility] Chloride 105 96 - 110 mmol/L LAB CHEMISTRY METHOD 11/08/2024 1:03 PM [facility] CO2 30 21 - 32 mmol/L LAB CHEMISTRY METHOD 11/08/2024 1:03 PM [facility] Anion Gap 6 3 - 11 LAB CHEMISTRY METHOD 11/08/2024 1:03 PM [facility] Glucose 105(H) 70 - 100 mg/dL LAB CHEMISTRY METHOD 11/08/2024 1:03 PM [facility] BUN 22 5 - 25 mg/dL LAB CHEMISTRY METHOD 11/08/2024 1:03 PM [facility] Creatinine 0.76 0.50 - 1.10 mg/dL LAB CHEMISTRY METHOD 11/08/2024 1:03 PM [facility] eGFR 80 >=60 mL/min/1. 73m2 LAB CHEMISTRY METHOD 11/08/2024 1:03 PM [facility] Comment:Calculation based on the Chronic Kidney Disease Epidemiology Collaboration (CKD-EPI) equation refit without adjustment for race. BUN/Creatinine Ratio 28.9 LAB CHEMISTRY METHOD 11/08/2024 1:03 PM [facility] Calcium 9.7 8.5 - 10.5 mg/dL LAB CHEMISTRY METHOD 11/08/2024 1:03 PM [facility] AST (SGOT) 27 10 - 42 unit/L LAB CHEMISTRY METHOD 11/08/2024 1:03 PM [facility] ALT (SGPT) 29 10 - 60 unit/L LAB CHEMISTRY METHOD 11/08/2024 1:03 PM [facility] Alkaline Phosphatase 506(H) 42 - 121 unit/L LAB CHEMISTRY METHOD 11/08/2024 1:03 PM EST [facility] Comment:Results verified by repeat testing Total Protein 6.9 6.0 - 8.0 g/dL LAB CHEMISTRY METHOD 11/08/2024 1:03 PM EST [facility] Albumin 3.6 3.2 - 5.0 g/dL LAB CHEMISTRY METHOD 11/08/2024 1:03 PM [facility] Total Bilirubin 0.7 0.0 - 1.4 mg/dL LAB CHEMISTRY METHOD 11/08/2024 1:03 PM [facility] Blood Venous blood specimen / Unknown Venipuncture / Unknown 11/08/2024 9:50 AM EST 11/08/2024 9:50 AM EST Jimenez Snow MD LAB BLOOD ORDERABLES F inal Result [facility] [address] [place] [address], [place] [phone] * DXA BONE DENSITY STUDY 1+ SITS AXIAL SKEL (08/24/2023 9:46 AM EDT) Anatomical Region Laterality Modality Bone Densitometr y 03/02/2023 9:25 AM EDT Narrative 08/24/2023 7:50 PM EDT STUDY: DUAL ENERGY X-RAY ABSORPTIOMETRY / DXA REASON FOR EXAM: Female, 77 years old. Menopausal/postmenopausal disorder TECHNIQUE: Bone Mineral Density (BMD) measurements of the lumbar spine and left hip were obtained. COMPARISON: None FINDINGS: [...] Densitometry http://www.iscd.org 3. National Osteoporosis Foundation http://www.nof.org Procedure Note Indira Chino L - 12/27/2023 STUDY: DUAL ENERGY X-RAY ABSORPTIOMETRY [...] http://www.iscd.org 3. National Osteoporosis Foundation http://www.nof.org Jimenez Snow MD IMG DXA PROCEDURES Fin al Result from Last 3 Months or Most Recently Relevant to Health Maintenance Insurance [employer] MEDICARE Care Teams Debt And Budget Counselor Relationship Specialty Start Date End Date Jimenez Snow MD [address] [place] [address] PCP - General 10/27/22
== END 2025-05-17 09:59 | disposition home or self-care (01) ==
LOC: HO.HOS 09:14
PROVIDERS: PCP Internal Medicine; Visit Provider Orthopaedic Surgery
DX: M19.012 Primary osteoarthritis, left shoulder (principal)
CPT/HCPCS: 99214

== ENCOUNTER → 2025-05-17 09:14 | Outpatient (BNVA) | payer MEDICARE, SELFPAY | PROVIDERS: PCP Internal Medicine; Visit Provider Orthopaedic Surgery | DX: M19.012 Primary osteoarthritis, left shoulder (principal) | CPT/HCPCS: 99212 ==

== ENCOUNTER → 2025-08-07 08:50 | Outpatient (BNVA) | payer MEDICARE, SELFPAY | PROVIDERS: PCP Internal Medicine | DX: Z01.818 Encounter for other preprocedural examination (principal) ==

== ENCOUNTER 2025-08-23 14:16 | Outpatient (AMB) | payer MEDICARE, SELFPAY ==
--- NOTE | 2025-08-23 08:25 | A.OFFVIS_ITS ---
Intake Visit Reasons: Pre-Op: L TSA w/NE 08/28/25 Intake Note: Cady is a 79 year old left hand dominant female who presents today for a pre- operative appointment for upcoming left TATYANA with Dr. Tolliver on 08/28/25. Pain management agreement reviewed and signed. Allergies Seasonal Allergies Allergy (Intermediate, Verified 08/16/25 10:08) Nasal congestion Medication List - Last Reconciled 08/23/25 by Piedad Rivas PA-C acetaminophen 650 mg PO Q6H PRN cholecalciferol (vitamin D3) 50 mcg PO QAM fexofenadine 180 mg PO BEDTIME ibuprofen 200 mg PO Q6H PRN lisinopril-hydrochlorothiazide 10-12.5 mg 1 tab PO QAM multivitamin 1 tab PO QAM triamcinolone acetonide (Nasacort) 2 sprays intranasal BID HPI Comments Details: Ms Martinez presents to the office today for Orthopedic Pre op clearance. She is scheduled for left total shoulder arthroplasty on 08/28/[address] Tolliver. She has a history of left shoulder arthroscopy on 07/03/[address] Tolliver. She did have relief after the surgery; however, over the last year or so she has developed left shoulder pain that is worse with range of motion and limits her ability to perform daily activities. She has difficulty raising her left arm to her mouth. She has had steroid injections in the left shoulder with minimal relief. She is an avid bowler and would like to return to some level of normalcy. She is left-hand dominant. Patient lives alone. PCP clearance obtained 06/25/25 Jimenez Snow: -Ms. Valdez clinical risk factors include none and female is scheduled for an intermediate risk procedure. Her functional capacity is estimated to be greater than for METS. She is therefore estimated to have an acceptable risk for the proposed procedure. Further cardiac workup is not warranted. Beta blockade perioperatively is not needed. PFSH Medical History (Updated 08/16/25 @ 10:34 by Priscilla Tineo RN) [place] (hard of hearing) Pituitary adenoma Osteopenia Anxiety Elevated cholesterol FIONA on CPAP Primary osteoarthritis, left shoulder Hypertension Loose body in left shoulder Surgical History (Updated 08/16/25 @ 10:12 by Priscilla Tineo RN) Hx of bilateral cataract extraction History of esophagogastroduodenoscopy (EGD) H/O colonoscopy Hx of eye surgery S/P arthroscopy of left shoulder (~07/03/20) Family History (Updated 09/25/20 @ 15:05 by Mya Morataya CMA) Father No problems noted. Mother No problems noted. Social History (Updated 09/25/20 @ 15:06 by Mya Morataya CMA) Are you a primary resident care aide to a significant other at home: No Do you presently have visiting nurse or other home services: No Comment: advised of trip hazard Patient Tobacco Use Status: Never used Tobacco Current occupational status: retired Current occupation: Right Handed Review of Systems Const All systems reviewed & are unremarkable except as noted in HPI and below Physical Exam Const General: cooperative, healthy appearing, comfortable, no acute distress, well developed and alert Orientation/consciousness: patient oriented x3 HEENT Head: Yes normal to inspection, Yes normocephalic and Yes atraumatic Eyes General: appearance normal, both eyes and all related structures Neck Neck: Yes normal visual inspection and Yes no lymphadenopathy Resp Effort & Inspection: normal respiratory effort and able to speak in complete sentences Cardio Rate: regular rate Peripheral pulses: Peripheral pulses 2+ throughout GI Inspection: Yes normal to inspection Palpation (GI): Soft to palpation Skin General skin exam: no rashes or lesions noted Neuro General: patient oriented x3 Extrem Other: Left shoulder skin is intact without any abrasions or open wounds. External rotation limited to 25 degrees compared to 45 degrees on the contralateral shoulder. Active abduction with recruitment to 80 degrees. Forward flexion to 110. Negative empty can. Psych Appearance: grossly normal Mental Status: mental status grossly normal Assessment & Plan Assessment & Plan (1) Primary osteoarthritis, left shoulder: Code(s): M19.012 - Primary osteoarthritis, left shoulder Category: Medical Plan: Ms Martinez exhausted all conservative measures consisting of lifestyle modifications, physical therapy, analgesics, corticosteroid injections and use of assisted devices and continues to have significant limitations in daily activities along with decreased quality of life. Given the patient's desire to improve their quality of life, surgical intervention consisting of joint replacement surgery is recommended at this time.? We discussed the procedure in detail today; which includes pre op preparation with labs and reviewing patients medication regimen prior to surgery. Orders were placed for BMP CBC and a type and screen prior to surgery. She will also have a stat CT scan performed for surgical planning. I discussed at length the post op course which includes physical therapy services in the hospital along with the discharge routine and the patients plan upon discharge. We will determine home versus short-term rehab based on her physical therapy evaluation in the hospital. I explained to the patient, once they are DC home, they will receive VNA services which will include PT 2-3x per week. We also discussed their choice for outpatient PT once they are discharged from home PT. Patient would like to attend [facility] core physical therapy. Post op DVT ppx was also discussed and the considering the patients having an upper extremity surgery we would place her on aspirin 325 mg p.o. b.i.d. for DVT prophylaxis. I reviewed with the patient their post op pain medication regimen along with the detailed wean program. The patient did express understanding of this and agreed to the narcotic policy. Lastly, I discussed with the patient the risks to the procedure. Risks including but not limited to infection, injury to surrounding nerves, tissue , bone, small and large vessels, stiffness, aseptic loosening, fracture, dislocation, amputation, DVT/PE along with intraoperative complications including but not limited to . The patient does express understanding, all questions were answered and the patient would like to proceed? with left total shoulder arthroplasty with Dr. Tolliver. Consents were signed and dated while in the office today.? Post-Operative Recovery Notes: * DVT ppx : Aspirin * Hospital DC plan: Home versus rehab * Physical Therapy: [facility] * Patient was fit for a sling in the office today to be used for postop care Orders: Orders CT shoulder LT wo IV con Today M19.012 - Primary osteoarthritis, left shoulder Complete Blood Count Auto Diff Today Z01.818 - Encounter for other pre procedural examination Type and Screen Today Z01.818 - Encounter for other preprocedural examination Basic Metabolic Panel Today Z01.818 - Encounter for other preprocedural examination Coding Level of Care Code Est Pt Level 3 (75563) Complex EM visit Add On G2211 Diagnoses Primary osteoarthritis, left shoulder M19.012
--- OUTSIDE RECORDS SUMMARY | 2025-08-23 15:53 | XMS_ITS | Clinical Summary ---
Author Organization [facility] Address [address] [place] [address] Care Team Providers Care Line Inspector Name Role Phone Cornelius Hughes MD Primary Care Provider [phone]- [phone] Allergies Active Allergy Reactions Criticality Noted Date Comments Seasonal 03/29/2019 Medications Medication Sig Dispensed Refills Start Date End Date Status lisinopril-hydroCHLOROt hiazide (PRINZIDE,ZESTORETIC) tablet 10-12.5 mg 0 01/04/2019 Active Viwpxhvhnen-Dxkueujga-Q it C-Mn (GLUCOSAMINE 1500 COMPLEX PO) Take [...] age to complete this topic Care Teams Line Inspector Relationship Specialty Start Date End Date Cornelius Hughes MD [address] [address] PCP - General Internal Medicine 01/17/19
--- OUTSIDE RECORDS SUMMARY | 2025-08-23 15:53 | XMS_ITS | Clinical Summary ---
Author Organization [facility] Address [address] [place] [address] Phone Care Team Providers Care Cloth Seconds Sorter Name Role Phone Jimenez Snow MD Primary [...] reflex to direct LDL; Future Pituitary adenoma ([facility] V24, [facility] V28) 09/2023 Other viral warts 06/05/2020 Impingement syndrome of left shoulder region Right carpal tunnel syndrome 03/29/2019 Ganglion cyst of flexor tendon sheath of finger, right 02/01/2019 Encounters Date Type Department Care Team Description 06/25/2025 10:00 AM EDT Consult Adult Medicine [address] [phone] Jimenez Snow MD Pre-op exam (Primary Dx) 06/07/2025 Telephone Adult Medicine [address] [phone] Jimenez Snow MD from Last 3 Months Immunizations Immunization Administration Dates Next Due Influenza trivalent, 0.5mL [...] for your loved ones. For example, child guidance counselor or elderly care for an older adult? [...] Date Recorded What is your living situation? Unrecognized valu e 05/03/2025 Interpersonal Safety Answer Date Record ed Physical Abuse Unrecognized value 12/18/2024 Verbal Abuse Unrecognized value 12/18/2024 Comments No Sex and Gender Information [...] 1:15 PM EST Appointment Bone Density - [address] [phone] 11/06/2025 9:30 AM EST Office Visit Adult Medicine [facility] - [address] [phone] Jimenez Snow MD [address] [place], [place] Health Maintenance Due Date Last Done Comments [...] ECG 12 lead (06/25/2025 1:36 PM EDT) us Historical Provider ECG ORDERABLES Final Res ult * ECG 12 lead Tracing Only (06/25/2025 10:28 AM EDT) Jimenez Snow MD ECG ORDERABLES Final Result * (ABNORMAL) CBC auto differential (06/25/2025 9:01 AM EDT) Only the most recent of2 resultswithin the time period is included. WBC 4.2(L) 4.8 - 10.8 K/mcL LAB HEMETOLOGY METHOD 06/25/2025 10:36 AM EDT [facility] RBC 4.60 3.80 - 4.80 M/mcL LAB HEMETOLOGY METHOD 06/25/2025 10:36 AM EDT [facility] Hemoglobin 14.3 11.5 - 16.0 g/dL LAB HEMETOLOGY METHOD 06/25/2025 10:36 AM [facility] Hematocrit 42.6 35.0 - 47.0 % LAB HEMETOLOGY METHOD 06/25/2025 10:36 AM [facility] MCV 92.0 79.0 - 98.0 FL LAB HEMETOLOGY METHOD 06/25/2025 10:36 AM [facility] MCH 30.9 27.0 - 32.0 pcg LAB HEMETOLOGY METHOD 06/25/2025 10:36 AM [facility] MCHC 33.6 32.0 - 37.0 g/dL LAB HEMETOLOGY METHOD 06/25/2025 10:36 AM [facility] RDW 13.0 11.0 - 15.0 % LAB HEMETOLOGY METHOD 06/25/2025 10:36 AM [facility] Platelets 227 130 - 400 K/mcL LAB HEMETOLOGY METHOD 06/25/2025 10:36 AM [facility] MPV 11.1(H) 7.0 - 11.0 FL LAB HEMETOLOGY METHOD 06/25/2025 10:36 AM [facility] NRBC 0.0 <1.0 % LAB HEMETOLOGY METHOD 06/25/2025 10:36 AM [facility] NRBC Absolute 0.00 <0.10 K/mcL LAB HEMETOLOGY METHOD 06/25/2025 10:36 AM [facility] Neutrophils Relative 59.4 % LAB HEMETOLOGY METHOD 06/25/2025 10:36 AM [facility] Lymphocytes Relative 24.8 % LAB HEMETOLOGY METHOD 06/25/2025 10:36 AM [facility] Monocytes Relative 10.1 % LAB HEMETOLOGY METHOD 06/25/2025 10:36 AM [facility] Eosinophils Relative 4.8 % LAB HEMETOLOGY METHOD 06/25/2025 10:36 AM EDT [facility] Basophils Relative 0.7 % LAB HEMETOLOGY METHOD 06/25/2025 10:36 AM EDT [facility] Immature Granulocytes Relative 0.2 % LAB HEMETOLOGY METHOD 06/25/2025 10:36 AM EDT [facility] Neutrophils Absolute 2.46 1.50 - 7.00 K/mcL LAB HEMETOLOGY METHOD 06/25/2025 10:36 AM EDT [facility] Lymphocytes Absolute 1.03 1.00 - 5.00 K/mcL LAB HEMETOLOGY METHOD 06/25/2025 10:36 AM EDT [facility] Monocytes Absolute 0.42 0.20 - 1.00 K/mcL LAB HEMETOLOGY METHOD 06/25/2025 10:36 AM EDT [facility] Eosinophils Absolute 0.20 0.00 - 0.50 K/mcL LAB HEMETOLOGY METHOD 06/25/2025 10:36 AM EDT [facility] Basophils Absolute 0.03 0.00 - 0.20 K/mcL LAB HEMETOLOGY METHOD 06/25/2025 10:36 AM EDT [facility] Immature Granulocytes Absolute 0.01 0.00 - 0.03 K/mcL LAB HEMETOLOGY METHOD 06/25/2025 10:36 AM EDT [facility] Blood Venous blood specimen / Unknown Venipuncture / Unknown 06/25/2025 9:01 AM EDT 06/25/2025 9:01 AM EDT us Jimenez Snow MD LAB BLOOD ORDERABLES F inal Result [facility] [address] [place] [address], * (ABNORMAL) Basic metabolic panel (06/25/2025 9:01 AM EDT) Sodium 142 133 - 145 mmol/L LAB CHEMISTRY METHOD 06/25/2025 1:48 PM [facility] Potassium 3.7 3.5 - 5.5 mmol/L LAB CHEMISTRY METHOD 06/25/2025 1:48 PM [facility] Chloride 107 96 - 110 mmol/L LAB CHEMISTRY METHOD 06/25/2025 1:48 PM [facility] CO2 29 21 - 32 mmol/L LAB CHEMISTRY METHOD 06/25/2025 1:48 PM [facility] Anion Gap 6 3 - 11 LAB CHEMISTRY METHOD 06/25/2025 1:48 PM [facility] Glucose 108(H) 70 - 100 mg/dL LAB CHEMISTRY METHOD 06/25/2025 1:48 PM [facility] BUN 21 5 - 25 mg/dL LAB CHEMISTRY METHOD 06/25/2025 1:48 PM [facility] Creatinine 0.79 0.50 - 1.10 mg/dL LAB CHEMISTRY METHOD 06/25/2025 1:48 PM [facility] eGFR 76 >=60 mL/min/1. 73m2 LAB CHEMISTRY METHOD 06/25/2025 1:48 PM [facility] Comment:Calculation based on the Chronic Kidney Disease Epidemiology Collaboration (CKD-EPI) equation refit without adjustment for race. BUN/Creatinine Ratio 26.6 LAB CHEMISTRY METHOD 06/25/2025 1:48 PM [facility] Calcium 9.3 8.5 - 10.5 mg/dL LAB CHEMISTRY METHOD 06/25/2025 1:48 PM [facility] Blood Venous blood specimen / Unknown Venipuncture / Unknown 06/25/2025 9:01 AM EDT 06/25/2025 9:01 AM EDT us Jimenez Snow MD LAB BLOOD ORDERABLES F inal Result [facility] [address] [place] [address], [place] [phone] * Lipid panel with reflex to direct LDL (05/29/2025 10:53 AM EDT) Cholesterol 188 0 - 200 mg/dL LAB CHEMISTRY METHOD 05/29/2025 6:21 PM EDT [facility] Triglycerides 76 0 - 150 mg/dL LAB CHEMISTRY METHOD 05/29/2025 6:21 PM EDT [facility] HDL 85 >=40 mg/dL LAB CHEMISTRY METHOD 05/29/2025 6:21 PM EDT [facility] LDL Calculated 88 0 - 100 mg/dL LAB CHEMISTRY METHOD 05/29/2025 6:21 PM EDT [facility] VLDL Cholesterol Sam 15.2 mg/dL LAB CHEMISTRY METHOD 05/29/2025 6:21 PM EDT [facility] Non HDL Chol. (LDL+VLDL) 103 <145 mg/dL LAB CHEMISTRY METHOD 05/29/2025 6:21 PM EDT [facility] Chol/HDL Ratio 2.2 0.0 - 4.4 LAB CHEMISTRY METHOD 05/29/2025 6:21 PM EDT [facility] Blood Venous blood specimen / Unknown Venipuncture / Unknown 05/29/2025 10:53 AM EDT 05/29/2025 10:53 AM EDT us Jimenez Snow MD LAB BLOOD ORDERABLES F inal Result [facility] [address] [place] [address], [place] [phone] * Vitamin D 25 hydroxy (05/29/2025 10:53 AM EDT) Vit D, 25-Hydroxy 33.4 30.0 - 80.0 ng/mL LAB CHEMISTRY METHOD 05/29/2025 4:07 PM EDT [facility] Blood Venous blood specimen / Unknown Venipuncture / Unknown 05/29/2025 10:53 AM EDT 05/29/2025 10:53 AM EDT us Jimenez Snow MD LAB BLOOD ORDERABLES F inal Result Performing Organization Address [facility] de Phone Number [facility] [address] [place] [address], [place] [phone] * Hemoglobin A1c (05/29/2025 10:53 AM EDT) Pathologist [facility] [place] Hemoglobin A1C 5.8 <6.5 % LAB CHEMISTRY METHOD 05/29/2025 2:16 PM EDT [facility] Mean Bld Glu Estim. 120 mg/dL LAB CHEMISTRY METHOD 05/29/2025 2:16 PM EDT [facility] Blood Venous blood specimen / Unknown Venipuncture / Unknown 05/29/2025 10:53 AM EDT 05/29/2025 10:53 AM EDT us Jimenez Snow MD LAB BLOOD ORDERABLES F inal Result Performing Organization Address [facility]/ZIP Co de Phone Number [facility] [address] [place] [address], [place] [phone] * (ABNORMAL) Comprehensive metabolic panel (05/29/2025 10:53 AM EDT) Pathologist [facility] Sodium 143 133 - 145 mmol/L LAB CHEMISTRY METHOD 05/29/2025 6:29 PM EDT [facility] Potassium 3.9 3.5 - 5.5 mmol/L LAB CHEMISTRY METHOD 05/29/2025 6:29 PM EDT [facility] Chloride 110 96 - 110 mmol/L LAB CHEMISTRY METHOD 05/29/2025 6:29 PM [facility] CO2 27 21 - 32 mmol/L LAB CHEMISTRY METHOD 05/29/2025 6:29 PM [facility] Anion Gap 6 3 - 11 LAB CHEMISTRY METHOD 05/29/2025 6:29 PM [facility] Glucose 110(H) 70 - 100 mg/dL LAB CHEMISTRY METHOD 05/29/2025 6:29 PM [facility] BUN 24 5 - 25 mg/dL LAB CHEMISTRY METHOD 05/29/2025 6:29 PM [facility] Creatinine 0.80 0.50 - 1.10 mg/dL LAB CHEMISTRY METHOD 05/29/2025 6:29 PM [facility] eGFR 75 >=60 mL/min/1. 73m2 LAB CHEMISTRY METHOD 05/29/2025 6:29 PM [facility] Comment:Calculation based on the Chronic Kidney Disease Epidemiology Collaboration (CKD-EPI) equation refit without adjustment for race. BUN/Creatinine Ratio 30.0 LAB CHEMISTRY METHOD 05/29/2025 6:29 PM [facility] Calcium 9.4 8.5 - 10.5 mg/dL LAB CHEMISTRY METHOD 05/29/2025 6:29 PM [facility] AST (SGOT) 22 10 - 42 unit/L LAB CHEMISTRY METHOD 05/29/2025 6:29 PM [facility] ALT (SGPT) 30 10 - 60 unit/L LAB CHEMISTRY METHOD 05/29/2025 6:29 PM [facility] Alkaline Phosphatase 521(H) 42 - 121 unit/L LAB CHEMISTRY METHOD 05/29/2025 6:29 PM [facility] Total Protein 6.8 6.0 - 8.0 g/dL LAB CHEMISTRY METHOD 05/29/2025 6:29 PM [facility] Albumin 3.6 3.2 - 5.0 g/dL LAB CHEMISTRY METHOD 05/29/2025 6:29 PM EDT [facility] Total Bilirubin 0.8 0.0 - 1.4 mg/dL LAB CHEMISTRY METHOD 05/29/2025 6:29 PM EDT [facility] Blood Venous blood specimen / Unknown Venipuncture / Unknown 05/29/2025 10:53 AM EDT 05/29/2025 10:53 AM EDT us Jimenez Snow MD LAB BLOOD ORDERABLES F inal Result [facility] [address] [place] [address], [place] [phone] * Hepatitis C antibody (11/08/2024 9:50 AM EST) Hepatitis C Antibody Negative Negative LAB CHEMISTRY METHOD 11/08/2024 1:08 PM EST [facility] Blood Venous blood specimen / Unknown Venipuncture / Unknown 11/08/2024 9:50 AM EST 11/08/2024 9:50 AM EST us Jimenez Snow MD LAB BLOOD ORDERABLES F inal Result [facility] [address] [place] [address], [place] [phone] * DXA BONE DENSITY STUDY 1+ SITS [...] 3. National Osteoporosis Foundation http://www.nof.org Procedure Note VarshaóscarIndira mancini L - 12/27/2023 STUDY: DUAL ENERGY X-RAY [...] Maintenance Insurance [employer] MEDICARE Care Teams Cloth Seconds Sorter Relationship Specialty Start Date End Date Jimenez Snow MD [address] [place] [address] PCP - General 10/27/22
--- OUTSIDE RECORDS SUMMARY | 2025-08-23 15:53 | XMS_ITS | Clinical Summary ---
Author Organization [facility] Address [address] [place] [address] Phone Care Team Providers Care Major Gifts Director Name Role Phone Cornelius Hughes MD [...] Devices Not on file Insurance MEDICARE REPLACEMENT [place] [id number] MEDICARE REPLACEMENT MEDICARE REPLACEMENT MEDICARE REPLACEMENT MEDICARE REPLACEMENT MEDICARE REPLACEMENT Member Subscriber Plan / Payer (Ef fective 2018-Present) Name:Cady Martinez Relation to Subscriber:Self Name:Cady Martinez Payer ID:[id number] (NAIC) Type:Medicare Address: [place] [id number] MEDICARE REPLACEMENT Member Subscriber Plan / Payer (Ef fective 2018-Present) Name:Cady Martinez Relation to Subscriber:Self Name:Cady Martinez Payer ID:[id number] (NAIC) Type:Medicare Address: [place] [id number] MEDICARE REPLACEMENT Member Subscriber Plan / Payer (Ef fective 2018-Present) Name:Cady Martinez Relation to Subscriber:Self Name:Cady Martinez Payer ID:[id number] (NAIC) Type:Medicare Address: [place] [id number] [place] [address] Care Teams Major Gifts Director Relationship Specialty Start Date End Date Cornelius Hughes MD [address] [place] [address] PCP - General Internal Medicine 11/01/19 Additional Source Comments The information contained in this document represents components of the legal health record. It is not the complete legal health record.[facility]
--- OUTSIDE RECORDS SUMMARY | 2025-08-23 15:53 | XMS_ITS | Clinical Summary ---
Author Organization [employer] Address [address] [facility] [address] [place] [address] Care Team Providers Care Splunk Dashboard Developer Name Role Phone Unavailable Primary Care Provider [...] patient's age to complete this topic Insurance [facility]
== END 2025-08-23 15:51 | disposition home or self-care (01) ==
LOC: HO.HOS 14:17
PROVIDERS: PCP Internal Medicine; Visit Provider Physician Assistant
DX: M19.012 Primary osteoarthritis, left shoulder (principal)
CPT/HCPCS: 99024

== ENCOUNTER → 2025-08-23 14:16 | Outpatient (BNVA) | payer MEDICARE, SELFPAY | PROVIDERS: PCP Internal Medicine; Visit Provider Physician Assistant | DX: M19.012 Primary osteoarthritis, left shoulder (principal) | CPT/HCPCS: 99212 ==

== ENCOUNTER 2025-08-24 | Outpatient (REF) | payer MEDICARE, SELFPAY ==
--- NOTE | ~2025-08-24 | CT_ITS ---
EXAMINATION: CT SHOULDER WITHOUT CONTRAST, LEFT CLINICAL INFORMATION: Osteoarthritis COMPARISON: Previous x-ray January 2025 TECHNIQUE: Axial images through the left shoulder without IV contrast. Sagittal and coronal reconstructions obtained. DLP 2 8 7 mgy/cm This CT examination was performed using dose optimization techniques as appropriate, variously including the following: *Automated exposure control *Adjustment of mA and/or kV according to patient size (this includes techniques or standardized protocols for targeted exams where dose is matched to indication/reason for exam; i.e. extremities or head) *Use of iterative reconstruction technique FINDINGS: Severe arthritis of the left glenohumeral joint with joint space narrowing and osteophyte formation. There is a small joint effusion. There is a complex fluid collection or cyst with slightly thickened wall and septation anterior medial to the shoulder joint adjacent to the subscapularis muscle measuring 4.5 x 2.5 cm probably representing a para-articular cyst or ganglion. There is moderate arthritis at the acromioclavicular joint. No fracture, dislocation or bone lesion is seen. There degenerative changes of the visualized lower cervical and upper thoracic spine. There is severe atherosclerotic disease. Visualized left lung is clear. CT/CT shoulder LT wo IV con IMPRESSION: Severe left shoulder osteoarthritis with adjacent complex cyst or fluid collection probably representing a para-articular cyst or ganglion measuring 2.5 x 4 cm. Electronically signed by: Tara Diaz MD 08/24/2025 11:28 AM EDT
--- OUTSIDE RECORDS SUMMARY | 2025-09-03 11:09 | XMS_ITS | Clinical Summary ---
Author Organization [facility] Address [address] [place] [address] Phone Care Team Providers Care Gusset Ripper Name Role Phone Jimenez Snow MD Primary [...] reflex to direct LDL; Future Pituitary adenoma ([facility] V24, [facility] V28) 09/2023 Other viral warts 06/05/2020 Impingement syndrome of left shoulder region Right carpal tunnel syndrome 03/29/2019 Ganglion cyst of flexor tendon sheath of finger, right 02/01/2019 Encounters Date Type Department Care Team Description 06/25/2025 10:00 AM EDT Consult Adult Medicine [address] [phone] Jimenez Snow MD Pre-op exam (Primary Dx) 06/07/2025 Telephone Adult Medicine [address] [phone] Jimenez Snow MD from Last 3 Months [...] for your loved ones. For example, children's tutor nursery or elderly care for an older adult? [...] 1:15 PM EST Appointment Bone Density - [address] [phone] 11/06/2025 9:30 AM EST Office Visit Adult Medicine East - [address] [phone] Jimenez Snow MD [address] [place], [place] Health Maintenance Due Date Last Done [...] Procedure Name Priority Date/Time Associated Diagnosis Comments EXTERNAL XRAY REPORT 08/28/2025 EXTERNAL XRAY REPORT 08/28/[address] REPORT 08/24/[address] REPORT 08/24/2025 ECG 12-LEAD Routine 06/25/2025 1:36 PM EDT ECG 12-LEAD TRACING ONLY Routine 06/25/2025 10:28 AM EDT Pre-op exam CBC WITH AUTO DIFFERENTIAL Routine 06/25/2025 9:01 AM EDT Pre-op examination BASIC METABOLIC PANEL Routine 06/25/2025 9:01 AM EDT Pre-op examination CBC AND DIFFERENTIAL Routine 06/25/2025 9:01 AM EDT Pre-op examination LIPID PANEL WITH REFLEX TO DIRECT LDL Routine 05/29/2025 10:53 AM EDT Mixed hyperlipidemia Hypercholesterolemia Primary hypertension HEPATITIS C ANTIBODY Routine 11/08/2024 9:50 AM EST Need for hepatitis C screening test DXA BONE DENSITY STUDY 1+ SITS AXIAL SKEL Routine 08/24/2023 9:46 AM EDT Other specified disorders of bone density and structure, unspecified site from Last 3 Months or Most Recently Relevant to Health Maintenance Results * External Xray Report (08/28/2025) Only the most recent of2 resultswithin the time period is included. Anatomical Region Laterality Modality Radiographic Kelsea ging Provider [facility] XR PROCEDURES Final Result * External CT Report (08/24/2025) Only the most recent of2 resultswithin the time period is included. Anatomical Region Laterality Modality Computed Tomogra phy Provider [facility] CT PROCEDURES Final Result * ECG 12 lead (06/25/2025 1:36 PM EDT) Historical Provider ECG ORDERABLES Final Res ult * ECG 12 lead Tracing Only (06/25/2025 10:28 AM EDT) Jimenez Snow MD ECG ORDERABLES Final Result * (ABNORMAL) CBC auto differential (06/25/2025 9:01 AM EDT) WBC 4.2(L) 4.8 - 10.8 K/mcL LAB HEMETOLOGY METHOD 06/25/2025 10:36 AM EDT [facility] RBC 4.60 3.80 - 4.80 M/mcL LAB HEMETOLOGY METHOD 06/25/2025 10:36 AM EDT [facility] Hemoglobin 14.3 11.5 - 16.0 g/dL LAB HEMETOLOGY METHOD 06/25/2025 10:36 AM EDT [facility] Hematocrit 42.6 35.0 - 47.0 % LAB HEMETOLOGY METHOD 06/25/2025 10:36 AM [facility] MCV 92.0 79.0 - 98.0 FL LAB HEMETOLOGY METHOD 06/25/2025 10:36 AM [facility] MCH 30.9 27.0 - 32.0 pcg LAB HEMETOLOGY METHOD 06/25/2025 10:36 AM [facility] MCHC 33.6 32.0 - 37.0 g/dL LAB HEMETOLOGY METHOD 06/25/2025 10:36 AM [facility] RDW 13.0 11.0 - 15.0 % LAB HEMETOLOGY METHOD 06/25/2025 10:36 AM [facility] Platelets 227 130 - 400 K/mcL LAB HEMETOLOGY METHOD 06/25/2025 10:36 AM [facility] MPV 11.1(H) 7.0 - 11.0 FL LAB HEMETOLOGY METHOD 06/25/2025 10:36 AM [facility] NRBC 0.0 <1.0 % LAB HEMETOLOGY METHOD 06/25/2025 10:36 AM [facility] NRBC Absolute 0.00 <0.10 K/mcL LAB HEMETOLOGY METHOD 06/25/2025 10:36 AM [facility] Neutrophils Relative 59.4 % LAB HEMETOLOGY METHOD 06/25/2025 10:36 AM [facility] Lymphocytes Relative 24.8 % LAB HEMETOLOGY METHOD 06/25/2025 10:36 AM [facility] Monocytes Relative 10.1 % LAB HEMETOLOGY METHOD 06/25/2025 10:36 AM [facility] Eosinophils Relative 4.8 % LAB HEMETOLOGY METHOD 06/25/2025 10:36 AM [facility] Basophils Relative 0.7 % LAB HEMETOLOGY METHOD 06/25/2025 10:36 AM EDT [facility] Immature Granulocytes Relative 0.2 % LAB HEMETOLOGY METHOD 06/25/2025 10:36 AM EDT [facility] Neutrophils Absolute 2.46 1.50 - 7.00 K/mcL LAB HEMETOLOGY METHOD 06/25/2025 10:36 AM EDT [facility] Lymphocytes Absolute 1.03 1.00 - 5.00 K/mcL LAB HEMETOLOGY METHOD 06/25/2025 10:36 AM EDT [facility] Monocytes Absolute 0.42 0.20 - 1.00 K/mcL LAB HEMETOLOGY METHOD 06/25/2025 10:36 AM EDT [facility] Eosinophils Absolute 0.20 0.00 - 0.50 K/mcL LAB HEMETOLOGY METHOD 06/25/2025 10:36 AM EDT [facility] Basophils Absolute 0.03 0.00 - 0.20 K/mcL LAB HEMETOLOGY METHOD 06/25/2025 10:36 AM EDT [facility] Immature Granulocytes Absolute 0.01 0.00 - 0.03 K/mcL LAB HEMETOLOGY METHOD 06/25/2025 10:36 AM T [facility] Blood Venous blood specimen / Unknown Venipuncture / Unknown 06/25/2025 9:01 AM EDT 06/25/2025 9:01 AM EDT us Jimenez Snow MD LAB BLOOD ORDERABLES F inal Result [facility] [address] [place] [address], [place] [phone] * (ABNORMAL) Basic metabolic panel (06/25/2025 9:01 AM EDT) [facility] Sodium 142 133 - 145 mmol/L LAB CHEMISTRY METHOD 06/25/2025 1:48 PM [facility] Potassium 3.7 3.5 - 5.5 mmol/L LAB CHEMISTRY METHOD 06/25/2025 1:48 PM [facility] Chloride 107 96 - 110 mmol/L LAB CHEMISTRY METHOD 06/25/2025 1:48 PM [facility] CO2 29 21 - 32 mmol/L LAB CHEMISTRY METHOD 06/25/2025 1:48 PM [facility] Anion Gap 6 3 - 11 LAB CHEMISTRY METHOD 06/25/2025 1:48 PM [facility] Glucose 108(H) 70 - 100 mg/dL LAB CHEMISTRY METHOD 06/25/2025 1:48 PM [facility] BUN 21 5 - 25 mg/dL LAB CHEMISTRY METHOD 06/25/2025 1:48 PM [facility] Creatinine 0.79 0.50 - 1.10 mg/dL LAB CHEMISTRY METHOD 06/25/2025 1:48 PM [facility] eGFR 76 >=60 mL/min/1. 73m2 LAB CHEMISTRY METHOD 06/25/2025 1:48 PM [facility] Comment:Calculation based on the Chronic Kidney Disease Epidemiology Collaboration (CKD-EPI) equation refit without adjustment for race. BUN/Creatinine Ratio 26.6 LAB CHEMISTRY METHOD 06/25/2025 1:48 PM [facility] Calcium 9.3 8.5 - 10.5 mg/dL LAB CHEMISTRY METHOD 06/25/2025 1:48 PM [facility] Blood Venous blood specimen / Unknown Venipuncture / Unknown 06/25/2025 9:01 AM EDT 06/25/2025 9:01 AM EDT us Jimenez Snow MD LAB BLOOD ORDERABLES F inal Result [facility] [address] [place] [address], [place] [phone] * Lipid panel with reflex to direct LDL (05/29/2025 10:53 AM EDT) Pathologist [facility] Cholesterol 188 0 - 200 mg/dL LAB CHEMISTRY METHOD 05/29/2025 6:21 PM EDT [facility] Triglycerides 76 0 - 150 mg/dL LAB CHEMISTRY METHOD 05/29/2025 6:21 PM EDT [facility] HDL 85 >=40 mg/dL LAB CHEMISTRY METHOD 05/29/2025 6:21 PM EDT [facility] LDL Calculated 88 0 - 100 mg/dL LAB CHEMISTRY METHOD 05/29/2025 6:21 PM EDT [facility] VLDL Cholesterol Sam 15.2 mg/dL LAB CHEMISTRY METHOD 05/29/2025 6:21 PM EDT [facility] Non HDL Chol. (LDL+VLDL) 103 <145 mg/dL LAB CHEMISTRY METHOD 05/29/2025 6:21 PM EDT [facility] Chol/HDL Ratio 2.2 0.0 - 4.4 LAB CHEMISTRY METHOD 05/29/2025 6:21 PM EDT [facility] Blood Venous blood specimen / Unknown Venipuncture / Unknown 05/29/2025 10:53 AM EDT 05/29/2025 10:53 AM EDT us Jimenez Snow MD LAB BLOOD ORDERABLES F inal Result [facility] [address] [place] [address], [place] [phone] * Hepatitis C antibody (11/08/2024 9:50 AM EST) [facility] Hepatitis C Antibody Negative Negative LAB CHEMISTRY METHOD 11/08/2024 1:08 PM EST [facility] Blood Venous blood specimen / Unknown Venipuncture / Unknown 11/08/2024 9:50 AM EST 11/08/2024 9:50 AM EST us Jimenez Snow MD LAB BLOOD ORDERABLES F inal Result [facility] [address] [place] [address], * DXA BONE DENSITY STUDY 1+ SITS [...] Maintenance Insurance [employer] MEDICARE Care Teams Gusset Ripper Relationship Specialty Start Date End Date Jimenez Snow MD [address] [place] [address] PCP - General 10/27/22
--- OUTSIDE RECORDS SUMMARY | 2025-09-03 11:09 | XMS_ITS | Clinical Summary ---
Author Organization [facility] Address [address] [place] [address] Phone Care Team Providers Care Strategic Partnership Manager Name Role Phone Cornelius Hughes MD Primary [...] Devices Not on file Insurance MEDICARE REPLACEMENT [place] [id number] MEDICARE REPLACEMENT MEDICARE REPLACEMENT MEDICARE REPLACEMENT MEDICARE REPLACEMENT MEDICARE REPLACEMENT Member Subscriber Plan / Payer (Ef fective 2018-Present) Name:Cady Martinez Relation to Subscriber:Self Name:Cady Martinez Payer ID:[id number] (NAIC) Type:Medicare Address: [place] [id number] MEDICARE REPLACEMENT Member Subscriber Plan / Payer (Ef fective 2018-Present) Name:Cady Martinez Relation to Subscriber:Self Name:Cady Martinez Payer ID:[id number] (NAIC) Type:Medicare Address: [place] [id number] MEDICARE REPLACEMENT Member Subscriber Plan / Payer (Ef fective 2018-Present) Name:Cady Martinez Relation to Subscriber:Self Name:Cady Martinez Payer ID:[id number] (NAIC) Type:Medicare Address: [place] [id number] [place] [address] Care Teams Strategic Partnership Manager Relationship Specialty Start Date End Date Cornelius Hughes MD [address] [place] [address] PCP - General Internal Medicine 11/01/19 Additional Source Comments The information contained in this document represents components of the legal health record. It is not the complete legal health record.[facility]
--- OUTSIDE RECORDS SUMMARY | 2025-09-03 11:09 | XMS_ITS | Clinical Summary ---
Author Organization [facility] Address [address] [place] [address] Care Team Providers Care Bladder Blower Name Role Phone Cornelius Hughes MD Primary Care Provider [phone]- [phone] Allergies Active Allergy Reactions Criticality Noted Date Comments Seasonal 03/29/2019 Medications Medication Sig Dispensed Refills Start Date End Date Status lisinopril-hydroCHLOROt hiazide (PRINZIDE,ZESTORETIC) tablet 10-12.5 mg 0 01/04/2019 Active Plwpntakyhc-Kfurbahti-U it C-Mn (GLUCOSAMINE 1500 COMPLEX PO) Take [...] age to complete this topic Care Teams Bladder Blower Relationship Specialty Start Date End Date Cornelius Hughes MD [address] [address] PCP - General Internal Medicine 01/17/19
--- OUTSIDE RECORDS SUMMARY | 2025-09-03 11:09 | XMS_ITS | Clinical Summary ---
Author Organization [facility] Address [address] [facility] [address] [place] [address] Care Team Providers Care Inspector Wreath Name Role Phone Unavailable Primary Care Provider [...] patient's age to complete this topic Insurance [facility] [place] [address]
== END 2025-08-24 00:01 | disposition home or self-care (01) ==
LOC: HO.CT
PROVIDERS: PCP Internal Medicine; Visit Provider Physician Assistant
DX: M19.012 Primary osteoarthritis, left shoulder (principal)
CPT/HCPCS: 73200

== ENCOUNTER → 2025-08-24 09:21 | Outpatient (BNV) | payer MEDICARE, SELFPAY | PROVIDERS: PCP Internal Medicine; Visit Provider Radiology Diagnostic Radiology | DX: M19.012 Primary osteoarthritis, left shoulder (principal) | CPT/HCPCS: 73200 ==

== ENCOUNTER 2025-08-28 08:27 | Day surgery (SDC) | payer MEDICARE, SELFPAY ==
--- OUTSIDE RECORDS SUMMARY | 2025-07-26 10:40 | XMS_ITS | Clinical Summary ---
Author Organization [facility] Address [address] [place] [phone] Phone Care Team Providers Care Digital Account Director Name Role Phone Cornelius Hughes MD Primary Care Provid er Social History Tobacco Use Types Packs/Day Years Used Date Smoking Tobacco: Never Assessed Education Answer Date Recorded Are you interested in more education? Not on miguelito e 03/19/2023 Are you concerned about learning? Not on file 03/19/2023 No 03/19/2023 No 03/19/2023 Digital Access Answer Date Recorded No 04/17/2023 No 04/17/2023 No 04/17/2023 Reliable internet access at home? Not on file 04/17/2023 Device with a working camera? Not on file Comments Unknown Sex and Gender Information Value Date Recorded Sex Assigned at Not on file Legal Sex Female 1:33 PM EST Gender Identity Not on file Sexual Orientation Not on file Plan of Treatment Health Maintenance Due Date Last Done Comments Adult Td,Tdap Booster 1945 LIPID PANEL 1945 DEPRESSION SCREENING 1957 SMOKING Hx and SMOKELESS TOBACCO SCREENING 1958 HEPATITIS C SCREENING 1963 PNEUMOCOCCAL VACCINES (50+ years) (1 of 1 - PCV) 1995 ZOSTER VACCINES (1 of 2) 1995 OSTEOPOROSIS SCREENING INITI AL (ONE-TIME) 2010 RSV VACCINE (1 - 1-dose 75+ series) 2020 INFLUENZA VACCINE (#1) 2025 , 07/31/2020 COVID-19 VACCINE (2 - 2024-2 6 season) 2025 10/15/2021 HEPATITIS A VACCINES Aged Out No long er eligible based on patient's age to complete this topic HIB VACCINES Aged Out No longer eligi ble based on patient's age to complete this topic MENINGOCOCCAL VACCINES (ACWY) Aged Out No longer eligible based on patient's age to complete this topic MENINGOCOCCAL VACCINES (B) Aged Out N o longer eligible based on patient's age to complete this topic Medical Devices Not on file Insurance MEDICARE REPLACEMENT [place] [address] MEDICARE REPLACEMENT MEDICARE REPLACEMENT MEDICARE REPLACEMENT MEDICARE REPLACEMENT MEDICARE REPLACEMENT Member Subscriber Plan / Payer (Ef fective 2018-Present) Name:Cady Martinez Relation to Subscriber:Self Name:Cady Martinez Payer ID:[id number] (NAIC) Type:Medicare Address: [place] [id number] MEDICARE REPLACEMENT Member Subscriber Plan / Payer (Ef fective 2018-Present) Name:Cady Martinez Relation to Subscriber:Self Name:Cady Martinez Payer ID:[id number] (NAIC) Type:Medicare Address: [place] [id number] MEDICARE REPLACEMENT Member Subscriber Plan / Payer (Ef fective 2018-Present) Name:Cady Martinez Relation to Subscriber:Self Name:Cady Martinez Payer ID:[id number] (NAIC) Type:Medicare Address: [place] [id number] MEDICARE REPLACEMENT Care Teams Digital Account Director Relationship Specialty Start Date End Date Cornelius Hughes MD [address] [place] [address] PCP - General Internal Medicine 11/01/19 Additional Source Comments The information contained in this document represents components of the legal health record. It is not the complete legal health record.[facility]
--- OUTSIDE RECORDS SUMMARY | 2025-07-26 10:40 | XMS_ITS | Clinical Summary ---
Author Organization [facility] Address [address] [place] [address] Care Team Providers Care Dock Attendant Name Role Phone Cornelius Hughes MD Primary Care Provider [phone] Allergies Active Allergy Reactions Criticality Noted Date Comments Seasonal 03/29/2019 Medications Medication Sig Dispensed Refills Start Date End Date Status lisinopril-hydroCHLOROt hiazide (PRINZIDE,ZESTORETIC) tablet 10-12.5 mg 0 01/04/2019 Active Zxtzxwxbhyl-Jkashkmfo-K it C-Mn (GLUCOSAMINE 1500 COMPLEX PO) Take [...] 1-dose 75+ series) 2020 Influenza Vaccine (#1) 2025 Hepatitis B Vaccines Aged Out No long er eligible based on patient's age to complete this topic RSV Ped < 20 months Aged Out No longe r eligible based on patient's age to complete this topic Care Teams Dock Attendant Relationship Specialty Start Date End Date Cornelius Hughes MD [address] [address] PCP - General Internal Medicine 01/17/19
--- OUTSIDE RECORDS SUMMARY | 2025-07-26 10:40 | XMS_ITS | Clinical Summary ---
Author Organization [facility] Address [address] [facility] [address] [place] [address] Care Team Providers Care Cracking Still Operator Name Role Phone Unavailable Primary Care Provider [...] series) 2020 COVID-19 Vaccine ( - season) 2025 10/06/2022, 01/21/2021, 12/30/2020 Influenza Vaccine (#1) 2025 3, 08/20/2022, 07/25/2021, Additional history exists HIB [...] patient's age to complete this topic Insurance [facility]
--- OUTSIDE RECORDS SUMMARY | 2025-07-26 10:40 | XMS_ITS | Clinical Summary ---
Author Organization [facility] Address [address] [place] [address] Phone Care Team Providers Care Licensed Tax Consultant Name Role Phone Jimenez Snow MD Primary Care Provider Allergies Active Allergy Reactions Criticality Noted Date Comments Other Low 11/19/2023 Seasonal Allergies Medications ibuprofen (ADVIL,MOTRIN) 200 mg tablet Take 1 Tablet by mouth every 6 hours as needed. Active acetaminophen (TYLENOL) 325 mg tablet Take 2 Tablets by mouth every 6 hours as needed. Active hydroCHLOROthia zide 12.5 mg tablet TAKE 1 TABLET BY MOUTH ONCE DAILY 100 tablet 2 02/19/2025 Active cholecalciferol (Vitamin D3) 50 mcg (2,000 unit) tablet Take 1 tablet (2,000 Units total) by mouth 1 (one) time each day. 180 tablet 1 06/25/2025 Active Active Problems Problem Noted Date Diagnosed Date Sleep apnea 12/18/2024 CPAP (continuous positive airway pressure) depen denangela 12/18/2024 Prediabetes 11/08/2024 Assessment & Plan (05/03/2025 [...] reflex to direct LDL; Future Pituitary adenoma ([facility] V24, [facility] V28) 09/2023 Other viral warts 06/05/2020 Impingement syndrome of left shoulder region Right carpal tunnel syndrome 03/29/2019 Ganglion cyst of flexor tendon sheath of finger, right 02/01/2019 Encounters Date Type Department Care Team Description 06/25/2025 10:00 AM EDT Consult Adult Medicine [address] [phone] Jimenez Snow MD Pre-op exam (Primary Dx) 06/07/2025 Telephone Adult Medicine [address] [phone] Jimenez Snow MD 05/03/2025 1:30 PM EDT Office Visit Adult Medicine [address] [phone] Jimenez Snow MD Medicare annual wellness visit, [...] DX:Anxiety diso rder Osteopenia DX:Osteopenia Pituitary adenoma (CMS/HCC V24, CMS/HCC V28) DX:Pituitary adenoma (HCC) Alkaline phosphatase elevation D X:Alkaline [...] care for your loved ones. For example, children's institution attendant or elderly care for an older adult? [...] Sign Reading Time Taken Comments Blood Pressure 118/61 06/25/2025 9:57 AM EDT Pulse 73 06/25/2025 9:57 AM EDT Temperature 37.1 C (98.8 F) 06/25/2025 9:57 AM EDT Respiratory Rate 16 06/25/2025 9:57 AM EDT Oxygen Saturation 95% 06/25/2025 9:57 AM EDT Inhaled Oxygen Concentration - - Weight 87.9 kg (193 lb 12.8 oz) 06/25/2025 9:57 AM EDT Height 162.6 cm (5' 4 ) 06/25/2025 9:57 AM EDT Body Mass Index 33.27 06/25/2025 9:57 AM EDT Plan of Treatment Upcoming Encounters Date Type Department Care Team (Late st Contact Info) Description 10/23/2025 1:15 PM EST Appointment Bone Density - [address] [phone] 11/06/2025 9:30 AM EST Office Visit Adult Medicine [facility] - [address] [phone] Jimenez Snow MD [address] [place] [address] Health Maintenance Due Date Last Done Comments COVID-19 Vaccine ( season) 2025 08/03/2024, 08/10/2023, 10/06/2022, Additional history exists Influenza Vaccine (#1) 2025 , 08/20/2022, 07/25/2021, Additional history exists Osteoporosis Screening (Bone Density Screening) 08/24/2025 08/24/2023, 08/14/2021 Falls Risk Assessment 05/03/2026 05/03/2025, 025 Medicare Annual Wellness Visit 05/03/2026 05/03/2025 Social Influencers of Health Screening 05/03/2026 05/03/2025 Hypertension/CHF/CAD Annual BMP Blood Test 06/25/2026 06/25/2025, 05/29/2025, 11/08/2024, Additional history exists Cholesterol Screening (Lipid Panel) 05/29/2030 05/29/2025, 11/08/2024, 05/19/2024, Additional history exists Hepatitis C Screening Completed 11/08/2024 Depression Screening Completed 05/03/2025 DTaP,Tdap,and Td Vaccines Discontinued HIB Vaccines Aged [...] Procedure Name Priority Date/Time Associated Diagnosis Comments ECG 12-LEAD Routine 06/25/2025 1:36 PM EDT ECG 12-LEAD TRACING ONLY Routine 06/25/2025 10:28 AM EDT Pre-op exam CBC WITH AUTO DIFFERENTIAL Routine 06/25/2025 9:01 AM EDT Pre-op examination BASIC METABOLIC PANEL Routine 06/25/2025 9:01 AM EDT Pre-op examination CBC AND DIFFERENTIAL Routine 06/25/2025 9:01 AM EDT Pre-op examination CBC WITH AUTO DIFFERENTIAL Routine 05/29/2025 10:53 AM EDT Mixed hyperlipidemia Hypercholesterolemia Primary hypertension COMPREHENSIVE METABOLIC PANEL Routine 05/29/2025 10:53 AM EDT Mixed hyperlipidemia Hypercholesterolemia Primary hypertension CBC AND DIFFERENTIAL Routine 05/29/2025 10:53 AM EDT Mixed hyperlipidemia Hypercholesterolemia Primary hypertension HEMOGLOBIN A1C Routine 05/29/2025 10:53 AM EDT Mixed hyperlipidemia Hypercholesterolemia Primary hypertension Prediabetes LIPID PANEL WITH REFLEX TO DIRECT LDL Routine 05/29/2025 10:53 AM EDT Mixed hyperlipidemia Hypercholesterolemia Primary hypertension VITAMIN D 25 HYDROXY Routine 05/29/2025 10:53 AM EDT Osteopenia of multiple sites Vitamin D insufficiency Encounter for vitamin deficiency screening HEPATITIS C ANTIBODY Routine 11/08/2024 9:50 AM EST Need for hepatitis C screening test DXA BONE DENSITY STUDY 1+ SITS AXIAL SKEL Routine 08/24/2023 9:46 AM EDT Other specified disorders of bone density and structure, unspecified site from Last 3 Months or Most Recently Relevant to Health Maintenance Results * ECG 12 lead (06/25/2025 1:36 PM EDT) Historical Provider ECG ORDERABLES Final Res ult * ECG 12 lead Tracing Only (06/25/2025 10:28 AM EDT) Jimenez Snow MD ECG ORDERABLES Final Result * (ABNORMAL) CBC auto differential (06/25/2025 9:01 AM EDT) Only the most recent of2 resultswithin the time period is included. WBC 4.2(L) 4.8 - 10.8 K/[facility] LAB HEMETOLOGY METHOD 06/25/2025 10:36 AM [facility] RBC 4.60 3.80 - 4.80 M/mcL LAB HEMETOLOGY METHOD 06/25/2025 10:36 AM [facility] Hemoglobin 14.3 11.5 - 16.0 g/dL LAB HEMETOLOGY METHOD 06/25/2025 10:36 AM [facility] Hematocrit 42.6 35.0 - 47.0 % LAB HEMETOLOGY METHOD 06/25/2025 10:36 AM [facility] MCV 92.0 79.0 - 98.0 FL LAB HEMETOLOGY METHOD 06/25/2025 10:36 AM [facility] MCH 30.9 27.0 - 32.0 pcg LAB HEMETOLOGY METHOD 06/25/2025 10:36 AM [facility] MCHC 33.6 32.0 - 37.0 g/dL LAB HEMETOLOGY METHOD 06/25/2025 10:36 AM [facility] RDW 13.0 11.0 - 15.0 % LAB HEMETOLOGY METHOD 06/25/2025 10:36 AM [facility] Platelets 227 130 - 400 K/mcL LAB HEMETOLOGY METHOD 06/25/2025 10:36 AM [facility] MPV 11.1(H) 7.0 - 11.0 FL LAB HEMETOLOGY METHOD 06/25/2025 10:36 AM [facility] NRBC 0.0 <1.0 % LAB HEMETOLOGY METHOD 06/25/2025 10:36 AM [facility] NRBC Absolute 0.00 <0.10 K/mcL LAB HEMETOLOGY METHOD 06/25/2025 10:36 AM [facility] Neutrophils Relative 59.4 % LAB HEMETOLOGY METHOD 06/25/2025 10:36 AM [facility] Lymphocytes Relative 24.8 % LAB HEMETOLOGY METHOD 06/25/2025 10:36 AM [facility] Monocytes Relative 10.1 % LAB HEMETOLOGY METHOD 06/25/2025 10:36 AM [facility] Eosinophils Relative 4.8 % LAB HEMETOLOGY METHOD 06/25/2025 10:36 AM [facility] Basophils Relative 0.7 % LAB HEMETOLOGY METHOD 06/25/2025 10:36 AM [facility] Immature Granulocytes Relative 0.2 % LAB HEMETOLOGY METHOD 06/25/2025 10:36 AM [facility] Neutrophils Absolute 2.46 1.50 - 7.00 K/mcL LAB HEMETOLOGY METHOD 06/25/2025 10:36 AM [facility] Lymphocytes Absolute 1.03 1.00 - 5.00 K/mcL LAB HEMETOLOGY METHOD 06/25/2025 10:36 AM [facility] Monocytes Absolute 0.42 0.20 - 1.00 K/mcL LAB HEMETOLOGY METHOD 06/25/2025 10:36 AM [facility] Eosinophils Absolute 0.20 0.00 - 0.50 K/mcL LAB HEMETOLOGY METHOD 06/25/2025 10:36 AM [facility] Basophils Absolute 0.03 0.00 - 0.20 K/mcL LAB HEMETOLOGY METHOD 06/25/2025 10:36 AM [facility] Immature Granulocytes Absolute 0.01 0.00 - 0.03 K/mcL LAB HEMETOLOGY METHOD 06/25/2025 10:36 AM [facility] Blood Venous blood specimen / Unknown Venipuncture / Unknown 06/25/2025 9:01 AM EDT 06/25/2025 9:01 AM EDT us Jimenez Snow MD LAB BLOOD ORDERABLES F inal Result [facility] [address] [place] [address], [place] [phone] * (ABNORMAL) Basic metabolic panel (06/25/2025 9:01 AM EDT) Sodium 142 133 - 145 mmol/L LAB CHEMISTRY METHOD 06/25/2025 1:48 PM EDT [facility] Potassium 3.7 3.5 - 5.5 mmol/L LAB CHEMISTRY METHOD 06/25/2025 1:48 [facility] Chloride 107 96 - 110 mmol/L LAB CHEMISTRY METHOD 06/25/2025 1:48 PM [facility] CO2 29 21 - 32 mmol/L LAB CHEMISTRY METHOD 06/25/2025 1:48 PM [facility] Anion Gap 6 3 - 11 LAB CHEMISTRY METHOD 06/25/2025 1:48 PM [facility] Glucose 108(H) 70 - 100 mg/dL LAB CHEMISTRY METHOD 06/25/2025 1:48 PM [facility] BUN 21 5 - 25 mg/dL LAB CHEMISTRY METHOD 06/25/2025 1:48 PM T [facility] Creatinine 0.79 0.50 - 1.10 mg/dL LAB CHEMISTRY METHOD 06/25/2025 1:48 PM [facility] eGFR 76 >=60 mL/min/1. 73m2 LAB CHEMISTRY METHOD 06/25/2025 1:48 PM [facility] Comment:Calculation based on the Chronic Kidney Disease Epidemiology Collaboration (CKD-EPI) equation refit without adjustment for race. BUN/Creatinine Ratio 26.6 LAB CHEMISTRY METHOD 06/25/2025 1:48 PM EDT [facility] Calcium 9.3 8.5 - 10.5 mg/dL LAB CHEMISTRY METHOD 06/25/2025 1:48 PM EDT [facility] Blood Venous blood specimen / Unknown Venipuncture / Unknown 06/25/2025 9:01 AM EDT 06/25/2025 9:01 AM EDT us Jimenez Snow MD LAB BLOOD ORDERABLES F inal Result [facility] [address] [place] [address], [place] [phone] * Lipid panel with reflex to direct LDL (05/29/2025 10:53 AM EDT) Cholesterol 188 0 - 200 mg/dL LAB CHEMISTRY METHOD 05/29/2025 6:21 PM EDT [facility] Triglycerides 76 0 - 150 mg/dL LAB CHEMISTRY METHOD 05/29/2025 6:21 PM EDT [facility] HDL 85 >=40 mg/dL LAB CHEMISTRY METHOD 05/29/2025 6:21 PM EDT [facility] LDL Calculated 88 0 - 100 mg/dL LAB CHEMISTRY METHOD 05/29/2025 6:21 PM EDT [facility] VLDL Cholesterol Sam 15.2 mg/dL LAB CHEMISTRY METHOD 05/29/2025 6:21 PM EDT [facility] Non HDL Chol. (LDL+VLDL) 103 <145 mg/dL LAB CHEMISTRY METHOD 05/29/2025 6:21 PM EDT [facility] Chol/HDL Ratio 2.2 0.0 - 4.4 LAB CHEMISTRY METHOD 05/29/2025 6:21 PM [facility] Blood Venous blood specimen / Unknown Venipuncture / Unknown 05/29/2025 10:53 AM EDT 05/29/2025 10:53 AM EDT us Jimenez Snow MD LAB BLOOD ORDERABLES F inal Result Performing Organization Address City/[facility]/ZIP Co de Phone Number [facility] [address] [place] [address], [place] [phone] * Vitamin D 25 hydroxy (05/29/2025 10:53 AM EDT) Pathologist [facility] Vit D, 25-Hydroxy 33.4 30.0 - 80.0 ng/mL LAB CHEMISTRY METHOD 05/29/2025 4:07 PM EDT [facility] Blood Venous blood specimen / Unknown Venipuncture / Unknown 05/29/2025 10:53 AM EDT 05/29/2025 10:53 AM EDT us Jimenez Snow MD LAB BLOOD ORDERABLES F inal Result Performing Organization Address [facility] Co de Phone Number [facility] [address] [place] [address], [place] [phone] * Hemoglobin A1c (05/29/2025 10:53 AM EDT) [facility] Hemoglobin A1C 5.8 <6.5 % LAB CHEMISTRY METHOD 05/29/2025 2:16 PM EDT [facility] Mean Bld Glu Estim. 120 mg/dL LAB CHEMISTRY METHOD 05/29/2025 2:16 PM EDT [facility] Blood Venous blood specimen / Unknown Venipuncture / Unknown 05/29/2025 10:53 AM EDT 05/29/2025 10:53 AM EDT us Jimenez Snow MD LAB BLOOD ORDERABLES F inal Result Performing Organization Address City/[facility]/ZIP Co de Phone Number [facility] [address] [place] [address], [place] [phone] * (ABNORMAL) Comprehensive metabolic panel (05/29/2025 10:53 AM EDT) Sodium 143 133 - 145 mmol/L LAB CHEMISTRY METHOD 05/29/2025 6:29 PM [facility] Potassium 3.9 3.5 - 5.5 mmol/L LAB CHEMISTRY METHOD 05/29/2025 6:29 PM [facility] Chloride 110 96 - 110 mmol/L LAB CHEMISTRY METHOD 05/29/2025 6:29 PM [facility] CO2 27 21 - 32 mmol/L LAB CHEMISTRY METHOD 05/29/2025 6:29 PM [facility] Anion Gap 6 3 - 11 LAB CHEMISTRY METHOD 05/29/2025 6:29 PM [facility] Glucose 110(H) 70 - 100 mg/dL LAB CHEMISTRY METHOD 05/29/2025 6:29 PM [facility] BUN 24 5 - 25 mg/dL LAB CHEMISTRY METHOD 05/29/2025 6:29 PM [facility] Creatinine 0.80 0.50 - 1.10 mg/dL LAB CHEMISTRY METHOD 05/29/2025 6:29 PM [facility] eGFR 75 >=60 mL/min/1. 73m2 LAB CHEMISTRY METHOD 05/29/2025 6:29 PM [facility] Comment:Calculation based on the Chronic Kidney Disease Epidemiology Collaboration (CKD-EPI) equation refit without adjustment for race. BUN/Creatinine Ratio 30.0 LAB CHEMISTRY METHOD 05/29/2025 6:29 PM [facility] Calcium 9.4 8.5 - 10.5 mg/dL LAB CHEMISTRY METHOD 05/29/2025 6:29 PM [facility] AST (SGOT) 22 10 - 42 unit/L LAB CHEMISTRY METHOD 05/29/2025 6:29 PM [facility] ALT (SGPT) 30 10 - 60 unit/L LAB CHEMISTRY METHOD 05/29/2025 6:29 PM EDT [facility] Alkaline Phosphatase 521(H) 42 - 121 unit/L LAB CHEMISTRY METHOD 05/29/2025 6:29 PM EDT [facility] Total Protein 6.8 6.0 - 8.0 g/dL LAB CHEMISTRY METHOD 05/29/2025 6:29 PM EDT [facility] Albumin 3.6 3.2 - 5.0 g/dL LAB CHEMISTRY METHOD 05/29/2025 6:29 PM EDT [facility] Total Bilirubin 0.8 0.0 - 1.4 mg/dL LAB CHEMISTRY METHOD 05/29/2025 6:29 PM EDT [facility] Blood Venous blood specimen / Unknown Venipuncture / Unknown 05/29/2025 10:53 AM EDT 05/29/2025 10:53 AM EDT us Jimenez Snow MD LAB BLOOD ORDERABLES F inal Result Performing Organization Address City/[facility]/ZIP Co de Phone Number [facility] [address] [place] [address], [place] [phone] * Hepatitis C antibody (11/08/2024 9:50 AM EST) Hepatitis C Antibody Negative Negative LAB CHEMISTRY METHOD 11/08/2024 1:08 PM EST [facility] Blood Venous blood specimen / Unknown Venipuncture / Unknown 11/08/2024 9:50 AM EST 11/08/2024 9:50 AM EST us Jimenez Snow MD LAB BLOOD ORDERABLES F inal Result [facility] [address] [place] [address], [place] [phone] * DXA BONE DENSITY STUDY 1+ SITS [...] Most Recently Relevant to Health Maintenance Insurance [facility] MEDICARE Care Teams Licensed Tax Consultant Relationship Specialty Start Date End Date Jimenez Snow MD [address] [place] [address] PCP - General 10/27/22
[2025-08-16 10:21] VITALS: BP 133/61; PULSE 76; RESP 20; O2SAT 97; BMI 33.4
--- NOTE | 2025-08-16 10:38 | HO.ANESPROP2 ---
Documented by User: Mona Pastor NP 08/16/25 10:56 HPI - Anesthesia Eval Consult details Narrative: 79yo F for Left Shoulder Total Arthroplasty, 08/28/25 No recent illness Chronic nasal congestion - abdiel and nasacort No CP/SOB with bowling, yardwork, housework FIONA on CPAP QHS Pituitary adenoma: obs only by PCP [facility] Active Problems Active Problems: All Active Problems Primary osteoarthritis, left shoulder (Acute) Past Medical History Medical History [place] (hard of hearing) Pituitary adenoma Osteopenia Anxiety Elevated cholesterol FIONA on CPAP Primary osteoarthritis, left shoulder Hypertension Loose body in left shoulder Family History Family History Father No problems noted. Mother No problems noted. Family history of problems with anesthesia: No Surgical History Surgical History Hx of bilateral cataract extraction History of esophagogastroduodenoscopy (EGD) H/O colonoscopy Hx of eye surgery S/P arthroscopy of left shoulder (~07/03/20) History of Problems with Anesthesia: No Social History Social History Are you a primary regular senior care provider to a significant other at home: No Do you presently have visiting nurse or other home services: No Comment: advised of trip hazard Patient Tobacco Use Status: Never used Tobacco Use of substances other than those prescribed or required for medical reasons: No Have you been hit, kicked, punched, or otherwise hurt by someone within the past year? If so, by whom?: No Spiritual Healthcare Practices: no Spiritism Healthcare Practices: no Cultural Healthcare Practices: no Are you DNR?: No Advance Directives on File: No FDLMP: n/a Current occupational status: retired Current occupation: Right Handed Meds Allergies Allergy/AdvReac Type Severity Reaction Status Date / Time Seasonal Allergies Allergy Intermediate Nasal Verified 08/16/25 10:08 congestion Home Medications ?Medication ?Instructions ?Recorded ?Confirmed ?Last Taken ?Type lisinopril 10 1 tab PO QAM 09/25/20 08/23/25 Unknown History mg-hydrochlorothiazide 12.5 mg tablet acetaminophen 325 mg tablet 650 mg PO Q6H PRN Pain 07/26/25 08/23/25 08/02/25 History cholecalciferol (vitamin D3) 50 50 mcg PO QAM 07/26/25 08/23/25 08/02/25 History mcg (2,000 unit) tablet ibuprofen 200 mg tablet 200 mg PO Q6H PRN Pain 07/26/25 08/23/25 Unknown History fexofenadine 180 mg tablet 180 mg PO BEDTIME 08/16/25 08/23/25 Unknown History multivitamin 1 tab PO QAM 08/16/25 08/23/25 Unknown History triamcinolone acetonide 55 mcg 2 spray intranasal BID 08/16/25 08/23/25 Unknown History nasal spray aerosol (Nasacort) Exam Height,Weight and Vital Signs: Height 5 ft 4 in Weight 88.2 kg Last Vital Signs Pulse 76 08/16/25 10:21 Resp 20 08/16/25 10:21 BP 133/61 08/16/25 10:21 Pulse Ox 97 08/16/25 10:21 O2 Del Method Room Air 08/16/25 10:21 Pertinent Lab Results Pertinent Lab Results: A1C 05/2025 5.8 WBC 4.8 - 10.8 K/mcL 4.2?Low? RBC 3.80 - 4.80 M/mcL 4.60 Hemoglobin 11.5 - 16.0 g/dL 14.3 Hematocrit 35.0 - 47.0 % 42.6 MCV 79.0 - 98.0 FL 92.0 MCH 27.0 - 32.0 pcg 30.9 MCHC 32.0 - 37.0 g/dL 33.6 RDW 11.0 - 15.0 % 13.0 Platelets 130 - 400 K/mcL 227 Sodium 133 - 145 mmol/L 142 Potassium 3.5 - 5.5 mmol/L 3.7 Chloride 96 - 110 mmol/L 107 CO2 21 - 32 mmol/L 29 Anion Gap 3 - 11 6 Glucose 70 - 100 mg/dL 108?High? BUN 5 - 25 mg/dL 21 Creatinine 0.50 - 1.10 mg/dL 0.79 eGFR >=60 mL/min/1.73m2 76 Narrative Narrative: EKG 06/2025 NSR @ 69 Airway Mallampati Class: III TM Dist: >3cm Neck ROM: Full Loose/Missing/Broken Teeth: Yes (missing side/molars) Heart: RRR Lungs: CTAB Assessment and Plan Assessment Anesthesia Assessment: Anesthesia Plan Discussed and PAT Visit Final Anesthetic Review Family History of Problems with Anesthesia: No History of Problems with Anesthesia: No Documented by User: Mikki Grady MD 08/28/25 08:08 [facility] Past Medical History Medical History [place] (hard of hearing) Pituitary adenoma Osteopenia Anxiety Elevated cholesterol FIONA on CPAP Primary osteoarthritis, left shoulder Hypertension Loose body in left shoulder Family History Family History Father No problems noted. Mother No problems noted. Surgical History Surgical History Hx of bilateral cataract extraction History of esophagogastroduodenoscopy (EGD) H/O colonoscopy Hx of eye surgery S/P arthroscopy of left shoulder (~07/03/20) Social History Social History Are you a primary regular senior care provider to a significant other at home: No Do you presently have visiting nurse or other home services: No Comment: advised of trip hazard Patient Tobacco Use Status: Never used Tobacco Use of substances other than those prescribed or required for medical reasons: No Have you been hit, kicked, punched, or otherwise hurt by someone within the past year? If so, by whom?: No Spiritual Healthcare Practices: no Spiritism Healthcare Practices: no Cultural Healthcare Practices: no Are you DNR?: No Advance Directives on File: No FDLMP: n/a Current occupational status: retired Current occupation: Right Handed Meds Allergies Allergy/AdvReac Type Severity Reaction Status Date / Time Seasonal Allergies Allergy Intermediate Nasal Verified 08/16/25 10:08 congestion Home Medications ?Medication ?Instructions ?Recorded ?Confirmed ?Last Taken ?Type lisinopril 10 1 tab PO QAM 09/25/20 08/23/25 Unknown History mg-hydrochlorothiazide 12.5 mg tablet acetaminophen 325 mg tablet 650 mg PO Q6H PRN Pain 07/26/25 08/23/25 08/02/25 History cholecalciferol (vitamin D3) 50 50 mcg PO QAM 07/26/25 08/23/25 08/02/25 History mcg (2,000 unit) tablet ibuprofen 200 mg tablet 200 mg PO Q6H PRN Pain 07/26/25 08/23/25 Unknown History fexofenadine 180 mg tablet 180 mg PO BEDTIME 08/16/25 08/23/25 Unknown History multivitamin 1 tab PO QAM 08/16/25 08/23/25 Unknown History triamcinolone acetonide 55 mcg 2 spray intranasal BID 08/16/25 08/23/25 Unknown History nasal spray aerosol (Nasacort) Assessment and Plan Final Anesthetic Review NPO: Yes ASA Class: II Final Preanesthetic Review: No Changes in Pt Med Stat, Meds/Allgs Chart Reviewed, Consent Obtained/Reviewed and Anes Risks/Benef Reviewed Patient Risk: Low Procedure Risk: Intermediate Anesthetic Plan Anesthetic Plan: GA, Regional Block and Agree w/ Assess. and Plan Disposition: Standard PACU
[2025-08-16 12:19] LABS: MRSA Nasal PCR NEGATIVE (Negative); SA Nasal PCR NEGATIVE (Negative)
[2025-08-24 09:55] LABS: MANUAL DIFF FLAG NO
[2025-08-24 10:38] LABS: Hematocrit 44.7 % (37.0-47.0); Hemoglobin 15.0 g/dl (12.0-16.0); Imm Gran Abs Auto 0.01 X10*3/uL (0.00-0.03); Imm Gran Pct Auto 0.3 % (0.0-0.4); Lymphocytes Absolute Auto 1.0 X10*3/uL (1.2-4.9); Mean Corpuscular HGB Conc 33.6 g/dl (31.0-35.0); Mean Corpuscular Hemoglobin 30.3 pg (27.0-33.0); Mean Corpuscular Volume 90.3 fL (80.0-98.0); NRBC Abs Auto 0.000 X10*3/uL (0.0-0.012); NRBC Pct Auto 0.0 /100WBC (0.0-0.2); Platelet Count 258 X10*3/uL (160-400); Red Blood Count 4.95 X10*6/uL (4.20-5.50); White Blood Count 3.7 X10*3/uL (4.8-10.8)
[2025-08-24 11:26] LABS: Anion Gap 10 (12-20); Blood Urea Nitrogen 17 mg/dL (9-16); Calcium 9.2 mg/dL (8.4-10.2); Carbon Dioxide 30 mmol/L (22-29); Chloride 105 mmol/L (96-108); Creatinine Clr Calc Pharmacy 62.1; Estimated Glomerular Filt Rate > 60; Potassium 3.4 mmol/L (3.3-5.1); Sodium 142 mmol/L (135-145)
[2025-08-28] VITALS (8 sets, daily range): BP systolic 112–144; BP diastolic 53–90; PULSE 70–85; RESP 16–18; TEMP 36.1–36.6; O2SAT 91–97; BMI 33.1; BMI 32.9
--- NOTE | ~2025-08-28 | XR_ITS ---
EXAMINATION: XR SHOULDER, LEFT CLINICAL INFORMATION: ap only COMPARISON: None available. TECHNIQUE: 1 AP view of the left shoulder. FINDINGS: Postsurgical changes, with arthroplasty component in the proximal humerus. Postsurgical changes in the glenoid. Air in the surrounding soft soft tissues. No acute periprosthetic fracture. Mild AC joint arthritis. Reticular prominence in the visualized left lung... XR/XR shoulder LT 1V IMPRESSION: Postsurgical changes status post left shoulder arthroplasty. Electronically signed by: Marc Moyer MD 08/29/2025 07:27 AM EDT
[2025-08-28] MEDS: Lactated Ringers 1,000 ML 100 ML IVCONT ×2 (09:16→17:43)
--- NOTE | 2025-08-28 11:57 | MHC.SHP ---
Pre-Procedural Eval Section A - 24 Hr Update-Section A only Date of Service: 08/28/25 The patient is an INPATIENT: No Changes since office visit: No Cold of Flu in the past 2 weeks, No New Medical Problems, No Changes in Medication and No Patient answered all questions The patient has been examined within 24 hours of the surgical procedure. The History & Physical has been completed within 30 days and I have reviewed it.: Yes Section B - Complete if H&P > 30 days Chief Complaint: Primary osteoarthritis, left shoulder Allergies: Allergies Allergy/AdvReac Type Severity Reaction Status Date / Time Seasonal Allergies Allergy Intermediate Nasal Verified 08/28/25 09:06 congestion Plan I have reviewed the history and physical and performed a pertinent physical examination on my patient. No changes have occurred unless specified. Time Spent With Patient Time: Total time managing care of this patient today ____ minutes.
--- NOTE | 2025-08-28 15:35 | P.BOP_ITS ---
Brief Operative Note Date of Service: 08/28/25 Pre-op diagnosis: Left shoulder OA Post-op diagnosis: same Procedure: Left TSA Implants: Tournier Surgeon: Nimesh Tolliver MD Anesthesia: GETA and regional Was an Marketing Effectiveness Manager used for this Procedure?: Yes Marketing Effectiveness Manager: Piedad Rivas Estimated blood loss (mL): 150 IV fluids (mL): 1,000 Pathology: other Condition: stable Disposition: PACU
[2025-08-28] MEDS: Albuterol/Iprat 2.5/0.5MG 3 ML AMPUL.NEB INHALE (16:15)
--- NOTE | 2025-08-28 17:23 | PC.NURSE ---
Ambulated patient to bathroom with 2 person stand by assist, patient tolerated well and voiding in bathroom. Patient then ambulated up to chair, sitting in chair, chair alarm on, call barnett in place. Patient's left arm sling remains in place.
[2025-08-28] MEDS: 0.9 % Sodium Chloride Flush 3 ML SYRINGE IVFLUSH (17:43)
--- NOTE | 2025-08-28 18:38 | PHA.MEDREC ---
Addendum entered by Rodney Medina RPh 08/28/25 19:47: med rec reviewed Original Note: Pharmacy Consult ? Medication Reconciliation Pharmacy has reviewed the medication reconciliation done by nursing. Spoke to patient was able to confirm all of her medications.
--- NOTE | 2025-08-28 21:29 | PM.DS ---
DS: Providers Provider Date of Service: 08/28/25 Date of discharge: 08/29/25 Primary care physician: Jimenez Snow MD Consults: 08/28/25 16:39 Consult to Case Management Routine Comment: Lt TSA home vs str Consult to Hospitalist Routine Comment: Consulting Provider: [facility] – [place] Hospitalists Reason For Exam: medical management DS: Diagnosis Discharge Diagnosis (1) Status post total replacement of left shoulder: Status: Acute DS: Summary Hospital Course Hospital Course: The patient underwent a successful Left total shoulder arthroplasty on 08/28/[address] Tolliver, was transferred to PACU and then to the floor to recover. During their stay, their vitals were stable, afebrile at 97.6 . Labs were unremarkable, H/H 12.0/35.1 . POD 1 he was started on ASA 325 mg tabs po bid for DVT ppx, they also received Occupation therapy prior to discharge. -Physical Therapy/ Occupational Therapy: -Patient is NWB of the shoulder -Range of Motion: FF 90, ER neutral, ABduction 90 -Strengthening: Periscapular muscles -Pendelums -Sling: remove for dressing and PT exercises Prior to discharge, her dressing was clean dry and intact.. The Aquacel dressing should remain intact and dry at all times. Any concerns with the dressing, please contact orthopedic office. No showering. The plan is to be discharged home with VNA Time Attestation Discharge Coordination Time (in mins): 30 Quality: Safe Use of Opioids Does Pt have an Active Cancer Diagnosis on the Problem List?: No Quality: Stroke Does the patient have a stroke diagnosis?: No Physical Exam Vital Signs: Vital Signs: Last Vital Signs Temp 97.5 F 08/28/25 19:57 Pulse 85 08/28/25 19:57 Resp 16 08/28/25 19:57 BP 119/54 L 08/28/25 19:57 Pulse Ox 91 L 08/28/25 19:57 O2 Del Method Room Air 08/28/25 19:57 O2 Flow Rate 2 08/28/25 16:46 BMI result Body Mass Index 32.9 DS: Data Data Completed and Pending Pending studies at discharge: Pending at discharge 08/28/25 14:10 Surgical [PTH] Routine Discharge Plan Discharge Patient Disposition: Home Health Service Referrals: Amy DO [Outside] - 1 Week Referral Note: Amy DO will call you to set up in home therapy and home health aide appointments Piedad Rivas PA-C [Physician Securities Adviser, Orthopedics] - 1 Week Referral Note: 09/13/25 09:45 [facility] – [place] Orthopedic Surgeons Piedad Rivas PA-C Discharge Medications: New docusate sodium 100 mg Capsule 100 mg PO BID 14 Days Qty: 28 0RF celecoxib 200 mg Capsule 200 mg PO BID 30 Days Qty: 60 0RF aspirin 325 mg Tablet 325 mg PO BID 42 Days Qty: 84 0RF oxycodone 5 mg Tablet 5 mg PO Q4H PRN (Reason: Pain, Moderate(Pain Scale 4-6)) 7 Days Qty: 42 0RF Rx Instructions: Partial Fill upon patient request. Continued acetaminophen 325 mg Tablet 650 mg PO Q6H PRN (Reason: Pain) cholecalciferol (vitamin D3) 50 mcg (2,000 unit) tablet 50 mcg PO QAM fexofenadine 180 mg Tablet 180 mg PO BEDTIME triamcinolone acetonide [Nasacort] 55 mcg Aerosol,[place] 2 spray INTRANASAL BID Rx Instructions: administer into each nostril multivitamin Tablet 1 tab PO QAM lisinopril-hydrochlorothiazide 10-12.5 mg tablet 1 tab PO QAM Discontinued ibuprofen 200 mg Tablet 200 mg PO Q6H PRN (Reason: Pain) Discharge Orders: Discharge Order (Routine); Ordered 08/29/25 Ordered By: Piedad Rivas Diet: Regular diet Activity on Discharge: Use Splints or Immobilizers Activity Restrictions/Additional Instructions: -Bandage/Incision Site Care: -Ice 20mins at a time -Make sure you use a towel or cloth on your skin as a barrier -DO NOT remove the bandage -Keep Bandage clean, dry and intact -Do not get the bandage wet: -No tub bath, pools or hot tubs -If there are any concerns regarding the bandage please call orthopedics: [phone] -Shoulder Precautions: -Refrain from applying pressure on the shoulder, such as pushing off from a chair or leaning on the arm -Avoid reaching behind the body -Avoid reaching across the body -Avoid external rotation -Keep sling on while sleeping -Physical Therapy: -Patient is NWB of the shoulder -Range of Motion: FF 90, ER neutral, ABduction 90 -Strengthening: Periscapular muscles -Pendelums -Sling: remove for dressing and PT exercises -Ankle pumps and incentive spirometry to limit the risk of blood clot -Diet: -Resume regular diet as tolerated. -Drink plenty of fluids and eat a high-fiber foods to avoid constipation -This is a common side effect of pain medication) -Take stool softeners as prescribed -Blood Clot Prevention: -Take the prescribed blood thinner (Aspirin) as directed for 6 weeks -Perform ankle pumps and walk frequently with the walker and assistance if needed -Report calf pain, swelling, or shortness of breath immediately Print Language: Ukrainian
[2025-08-29] MEDS: Lactated Ringers 1,000 ML 100 ML IVCONT (03:19)
[2025-08-29 03:38] VITALS: BP 149/68; PULSE 68; RESP 18; TEMP 36.3; O2SAT 95
[2025-08-29 06:08] LABS: MANUAL DIFF FLAG NO
[2025-08-29 06:22] LABS: Hematocrit 35.1 % (37.0-47.0); Hemoglobin 12.0 g/dl (12.0-16.0); Imm Gran Abs Auto 0.04 X10*3/uL (0.00-0.03); Imm Gran Pct Auto 0.4 % (0.0-0.4); Lymphocytes Absolute Auto 0.8 X10*3/uL (1.2-4.9); Mean Corpuscular HGB Conc 34.2 g/dl (31.0-35.0); Mean Corpuscular Hemoglobin 30.9 pg (27.0-33.0); Mean Corpuscular Volume 90.5 fL (80.0-98.0); NRBC Abs Auto 0.000 X10*3/uL (0.0-0.012); NRBC Pct Auto 0.0 /100WBC (0.0-0.2); Platelet Count 231 X10*3/uL (160-400); Red Blood Count 3.88 X10*6/uL (4.20-5.50); White Blood Count 10.8 X10*3/uL (4.8-10.8)
[2025-08-29 06:28] LABS: Anion Gap 12 (12-20); Blood Urea Nitrogen 21 mg/dL (9-16); Calcium 8.6 mg/dL (8.4-10.2); Carbon Dioxide 28 mmol/L (22-29); Chloride 106 mmol/L (96-108); Creatinine Clr Calc Pharmacy 58.0; Estimated Glomerular Filt Rate > 60; Potassium 4.3 mmol/L (3.3-5.1); Sodium 142 mmol/L (135-145)
--- NOTE | 2025-08-29 06:58 | HO.PM.IMCN ---
History of Present Illness Data of Consult Service Date: 08/29/25 Requesting physician: Nimesh Tolliver Primary Care Provider: Jimenez Snow MD [facility] Reason for consult: medical management Patient is a 79-year-old female with a past medical history significant for pituitary adenoma, osteopenia, anxiety, HLD, FIONA on CPAP, hypertension and class 1 obesity, no s/p left TSA yesterday. Medical history and medications were reviewed with the patient. She has no current medical concerns including chest pain, shortness breath, nausea, vomiting, cough, urinary symptoms including urgency or dysuria. She reports she urinated multiple times last night. She does still have little bit of tingling in her left thumb. Sensation is intact throughout. She feels ready to go home and would like outpatient PT. Review of Systems Review of Systems: Yes all other systems are reviewed and are negative PMFSH Medical History [place] (hard of hearing) Pituitary adenoma Osteopenia Anxiety Elevated cholesterol FIONA on CPAP Primary osteoarthritis, left shoulder Hypertension Loose body in left shoulder Family History Father No problems noted. Mother No problems noted. Surgical History Hx of bilateral cataract extraction History of esophagogastroduodenoscopy (EGD) H/O colonoscopy Hx of eye surgery S/P arthroscopy of left shoulder (~07/03/20) Social History Household Members: None Housing: House Are you a primary career development specialist to a significant other at home: No Do you presently have visiting nurse or other home services: No Comment: advised of trip hazard Patient Tobacco Use Status: Never used Tobacco Use of substances other than those prescribed or required for medical reasons: No Currently Displaying Signs/Symptoms of Drug Intoxication Withdrawal: No Have you been hit, kicked, punched, or otherwise hurt by someone within the past year? If so, by whom?: No Do you feel safe in your current relationship?: No Current Relationship Are you made to feel afraid or neglected: No Spiritual Healthcare Practices: no Zoroastrianism Healthcare Practices: no Cultural Healthcare Practices: no Are you DNR?: No Advance Directives: No (states has HCP, is not on file here/granddaughter is primary contact) Advance Directives Information Provided: Yes (as above noted) Advance Directives on File: No Do you have a plan to hurt others: No Plan Recently lost weight without trying: No How much weight loss: Not applicable Eating poorly because of decreased appetite: No Nutrition screen score: 0 Nutrition Risks: No Nutritional Risk Patient : No FDLMP: n/a : No Poor oral hygiene: No Current occupational status: retired Current occupation: Right Handed Meds Allergies Allergy/AdvReac Type Severity Reaction Status Date / Time Seasonal Allergies Allergy Intermediate Nasal Verified 08/28/25 09:06 congestion Active Medications: Current Medications Acetaminophen (Acetaminophen 325 Mg Tablet) 650 mg PO Q6H PRN PRN Reason: Pain, Mild 1-3,fever,headache Aspirin (Aspirin 325 Mg Tablet) 325 mg PO BID [facility] Celecoxib (Celecoxib 200 Mg Capsule) 200 mg PO BID [facility] Last Admin: 08/28/25 21:18 Dose: 200 mg Docusate Sodium (Docusate Sodium 100 Mg Capsule) 100 mg PO BID [facility] Last Admin: 08/28/25 21:18 Dose: 100 mg Fluticasone Propionate (Fluticasone Propionate Nasal 16 Gm [place]) 1 spray NOSTRIL-B BID [facility] Last Admin: 08/28/25 21:18 Dose: 1 spray Hydromorphone HCl (Hydromorphone Hcl 0.5 Mg/0.5 Ml Syringe) 0.25 mg IVPUSH Q4H PRN; Protocol PRN Reason: Pain, Severe (Pain Scale 7-10) Lactated Ringer's (Lr) 1,000 mls @ 100 mls/hr IVCONT .Q10H [facility] Stop: 08/29/25 08:00 Last Admin: 08/29/25 03:19 Dose: 100 mls/hr Loratadine (Loratadine 10 Mg Tablet) 10 mg PO BEDTIME [facility] Last Admin: 08/28/25 21:20 Dose: Not Given Naloxone HCl (Naloxone Hcl 0.4 Mg/Ml Vial) 0.04 mg IVPUSH Q5M PRN PRN Reason: Excessive sedation or RR < 8 Ondansetron HCl (Ondansetron Hcl 4 Mg/2 Ml Vial) 4 mg IVPUSH Q8H PRN PRN Reason: Nausea and Vomiting Oxycodone HCl (Oxycodone Hcl Immed Release 5 Mg Tablet) 5 mg PO Q4H PRN PRN Reason: Pain, Moderate(Pain Scale 4-6) Oxycodone HCl (Oxycodone Hcl Er 10 Mg Tab.Er.12h) 10 mg PO BID [facility] Last Admin: 08/28/25 21:20 Dose: Not Given Sodium Chloride (0.9 % Sodium Chloride Flush 3 Ml Syringe) 3 ml IVFLUSH QSHIFT [facility] Last Admin: 08/29/25 01:19 Dose: Not Given Home Medications ?Medication ?Instructions ?Recorded ?Confirmed ?Last Taken ?Type lisinopril 10 1 tab PO QAM 09/25/20 08/23/25 Unknown History mg-hydrochlorothiazide 12.5 mg tablet acetaminophen 325 mg tablet 650 mg PO Q6H PRN Pain 07/26/25 08/23/25 08/02/25 History cholecalciferol (vitamin D3) 50 50 mcg PO QAM 07/26/25 08/23/25 08/02/25 History mcg (2,000 unit) tablet fexofenadine 180 mg tablet 180 mg PO BEDTIME 08/16/25 08/23/25 Unknown History multivitamin 1 tab PO QAM 08/16/25 08/23/25 Unknown History triamcinolone acetonide 55 mcg 2 spray intranasal BID 08/16/25 08/23/25 Unknown History nasal spray aerosol (Nasacort) Physical Exam Vital Signs and Narrative: Vital Signs: Last Vital Signs Temp 97.4 F 08/29/25 03:38 Pulse 68 08/29/25 03:38 Resp 18 08/29/25 03:38 BP 149/68 H 08/29/25 03:38 Pulse Ox 95 08/29/25 03:38 O2 Del Method Room Air 08/29/25 03:38 O2 Flow Rate 2 08/28/25 16:46 BMI result Body Mass Index 32.9 General: AOx3, no acute distress Resp: CTA bilaterally CVS: S1, S2, RRR GI: +BS, NT, no distention Skin: Warm, dry Neuro: Cranial nerves II-XII grossly intact bilaterally. Motor grossly intact bilaterally. sensation intact BUE. radial pulse present LUE. Extremities: No pitting edema Psych: Appropriate affect Results Labs 08/29/25 05:35 08/29/25 05:35 Labs: Laboratory Results - last 24 hr 08/29/25 05:35 MCV 90.5 MCH 30.9 MCHC 34.2 RDW 13.0 Plt Count 231 MPV 10.8 Immature Gran % (Auto) 0.4 Neut % (Auto) 82.8 H Lymph % (Auto) 7.0 L [place] % (Auto) 9.7 Eos % (Auto) 0.0 Baso % (Auto) 0.1 Lymph # (Auto) 0.8 L [place] # (Auto) 1.1 Eos # (Auto) 0.0 Baso # (Auto) 0.0 Abs Immat Gran (auto) 0.04 H Absolute Neuts (auto) 9.0 H Absolute Nucleated RBC 0.000 Nucleated RBC % (auto) 0.0 Anion Gap 12 Estim Creat Clear Calc 58.0 Estimated GFR > 60 Fasting Glucose 162 H Calcium 8.6 D Assessment and Plan (1) Status post total replacement of left shoulder: Status: Acute Plan Patient is a 79-year-old female with a past medical history significant for pituitary adenoma, osteopenia, anxiety, HLD, FIONA on CPAP, hypertension and class 1 obesity, no s/p left TSA yesterday. S/p left TSA - POD 1 - plan per ortho FIONA - CPAP at bedtime HTN - lisinopril/hydrochlorothiazide Class 1 obesity - weight loss encouraged Thank you for allowing me to participate in the pt's care. Signing off. Please contact the medical team if any questions or concerns.
--- NOTE | 2025-08-29 07:52 | PM.PNORT ---
Subjective Subjective Date of Service: 08/29/25 Interval history: POD 1 s/p Left total shoulder arthroplasty No overnight events patient is resting comfortably in bed with sling intact she denies pain, block has worn off Physical Exam Vital Signs: Vital Signs: Last Vital Signs Temp 97.4 F 08/29/25 03:38 Pulse 68 08/29/25 03:38 Resp 18 08/29/25 03:38 BP 149/68 H 08/29/25 03:38 Pulse Ox 95 08/29/25 03:38 O2 Del Method Room Air 08/29/25 03:38 O2 Flow Rate 2 08/28/25 16:46 BMI result Body Mass Index 32.9 Const: General: cooperative and no acute distress Orientation/consciousness: patient oriented x3 Resp: Effort & Inspection: normal respiratory effort and able to speak in complete sentences Cardio: Peripheral pulses: Peripheral pulses 2+ throughout Neuro: General: patient oriented x3 Extrem: Other: Left shoulder bandage is clean dry and intact. Anterior deltoid sensation intact. She is able to flex and extend her wrist flex and extend all digits and perform thumb abduction. Neurovascularly intact. Procedures Date of Service Date of Service: 08/29/25 Progress Note: A&P Assessment and plan (1) Status post total replacement of left shoulder: Status: Acute Assessment and Plan: Continue pain management Begin aspirin 325 mg p.o. b.i.d. for DVT prophylaxis x6 weeks Occupational therapy: Left TSA, protect subscap repair, ER to neutral. Dispo pending OT eval possibly home with VNA Time Spent With Patient Time: Total time managing care of this patient today ____ minutes. Quality Stroke Does the patient have a stroke diagnosis?: No VTE Prior VTE?: No VTE Risk Level:: Surgical - high VTE Device Contraindication: N/A - Device Ordered VTE Drug Contraindication: N/A - Med Ordered
[2025-08-29 07:56] VITALS: BP 130/65; PULSE 63; RESP 16; TEMP 36.4; O2SAT 94
--- NOTE | 2025-08-29 08:57 | HO.POSTANES ---
Post Anesthesia Evaluation Post Anesthesia Evaluation Date of Service: 08/29/25 Vital Signs: Vital Signs Temp Pulse Resp BP Pulse Ox O2 Del Method 08/29/25 07:56 97.6 F 63 16 130/65 94 Room Air 08/29/25 03:38 97.4 F 68 18 149/68 H 95 Room Air Anesthesia: Nerve Block and General Mental Status: Awake Pain Control: Satisfactory Nausea/Vomiting: None Hydration: Adequate Anesthesia-Related Issues: No Anes. Related Issues
[2025-08-29] MEDS: 0.9 % Sodium Chloride Flush 3 ML SYRINGE IVFLUSH (08:59)
[2025-08-29] MEDS: oxyCODONE HCl ER 10 MG TAB.ER.12H PO (08:59)
--- NOTE | 2025-08-29 09:24 | MHC.CM.PN ---
Addendum entered by Lydia Jay RN 08/29/25 10:44: OT rec home w/ services. Cleared for dc home today. Granddaughter will transport at 12pm. RN aware. [facility] aware of dc. Discussed utilizing shuttle transport for follow up appointments as she is unable to drive. She verbalized understanding. Original Note: Patient lives in a home alone. Independent at baseline. Uses CPAP, [employer] is supplier. PCP Jimenez Snow MD Reports she has an HCP naming her granddaughter, Kristi, as HCA. Copy requested. DP: OT osmin pending. Goal is home w/ services via [facility], who can also provide short term PIERCING MILL OPERATOR services. Granddaughter can stay overnight and provide daily assistance, but does work during the day. Reports she also has a friend that has offered to provide assistance. Granddaughter will transport. CM will continue to follow.
--- NOTE | 2025-08-29 10:33 | P.F2F_ITS ---
Service Date Service Date: 08/29/25 Encounter Date of encounter: 08/29/25 Reasons for Services Signs and symptoms assessed: Weakness, poor balance, poor gait mechanics Reason for physical therapy: home safety and mobility, therapeutic exercises, restore joint function, gait/transfer training, ADL training, energy conservation and other (-Physical Therapy/ Occupational Therapy: -Patient is NWB of the shoulder -Range of Motion: FF 90, ER neutral, ABduction 90 - Strengthening: Periscapular muscles -Pendelums -Sling: remove for dressing and PT exercises) Reason for occupational therapy: home safety and mobility, therapeutic exercises, restore joint function, gait/transfer training, ADL training, energy conservation and other (-Physical Therapy/ Occupational Therapy: -Patient is NWB of the shoulder -Range of Motion: FF 90, ER neutral, ABduction 90 - Strengthening: Periscapular muscles -Pendelums -Sling: remove for dressing and PT exercises) MD Overseeing Care: Nimesh Tolliver Homebound: Leaving the home is medically contraindicated at this time without the asist of a device and/or another person due th the listed conditions above and below. Reason homebound: unsteady gait / fall risk, poor balance / fall risk and unable to drive Homebound supporting statement: Pt. is considered home bound due to recent surgery. Unable to drive, poor balance, poor gait mechanics. Certification: Based on the above findings, I certify that this patient is confined to the home and needs intermittent custodial care, physical therapy and/or speech therapy, or continues to need occupational therapy. The patient is under my care, and I have initiated the establishment of the plan of care. The patient will be followed by a physician who will periodically review the plan of care. Time Spent With Patient Time: Total time managing care of this patient today ____ minutes.
[2025-08-29 12:25] VITALS: BP 127/58; PULSE 73; RESP 16; TEMP 36.1; O2SAT 93
--- NOTE | 2025-08-31 15:30 | P.OP_ITS ---
Operative Note Operative Note Date of Service: 08/28/25 Narrative: Date of Service: 08/28/25 Pre-op diagnosis: Left shoulder OA Post-op diagnosis: same Procedure: Left TSA Implants: Tournier 40Cortiloc cemented glenoi Surgeon: Nimesh Tolliver MD Anesthesia: GETA and regional Was an Tourism Radio Presenter used for this Procedure?: Yes Tourism Radio Presenter: Piedad Rivas Estimated blood loss (mL): 150 IV fluids (mL): 1,000 Pathology: other Condition: stable Disposition: PACU Procedure in detail: Patient was brought to the operating room and placed in the beach chair position on the surgical table. The limb was prepped and draped in standard sterile fashion and a time out was called to identify proper site, proper procedure and IV antibiotics per weight were administered. I began by making a deltopectoral incision from the coracoid to the pectoralis insertion.? Blunt dissection identified the cephalic vein which was retracted laterally.? Blunt dissection was taken down to the 3 sisters which were cauterized.? I then made a full- thickness capsulotomy including the subscapularis. A 1 cm cuff was left for repair.? This was then tagged and the arm was externally rotated and extended and the head was dislocated.? The humeral head was eburnated and there was a very large inferior osteophyte that was removed with an osteotome and rongeur..? The RTC was intact. An anatomic head cut was made in patient's natural inclination (approximately 127 degree) .? A starter awl was used to identify the canal and then I broached up to a size #3 at 30 degrees of version.? I then placed my head protector and turned my attention to the glenoid.? Posterior anterior and superior glenoid retractors were placed and the biceps was tenotomized and labral tissue was removed.? Based on the preoperative CT and templating a guide pin was placed in approximately 8 degrees of retroversion and neutral inclination.? Using a wedge Reamer I reamed down to bleeding bone circumferentially and placed the size 40M glenoid drill guide and three holes were drilled. My final glenoid was cemented in place while applying axial compression. Once the cement was dry all excess cement was removed. I then returned to the humerus where I trialed a?3a stem with a 42x16 head. I was satisfied with the height and the stability. I impacted the head onto the stem on the back table and I irrigated copiously and then press fit in the final humeral components.. I was satisfied with the stability of the implants. I then irrigated and repaired the subscapularis with fiberwire.? I closed in a layered fashion with absorbable suture and phillip and the patient was placed in a sterile dressing and an abduction sling.? She was extubated brought to recovery room stable condition there were no known complications.
== END 2025-08-29 12:26 | disposition home health service (06) ==
LOC: HO.SSS 08:28 → HO.S3 16:25
PROVIDERS: Physician Assistant; PCP Internal Medicine; Visit Provider Orthopaedic Surgery
PROC: (CPT 23472; principal; 2025-08-28 12:10)
DX: M19.012 Primary osteoarthritis, left shoulder (principal); M25.512 Pain in left shoulder; M24.012 Loose body in left shoulder; I10 Essential (primary) hypertension; E78.00 Pure hypercholesterolemia, unspecified; D35.2 Benign neoplasm of pituitary gland; R73.03 Prediabetes; R73.01 Impaired fasting glucose; E55.9 Vitamin D deficiency, unspecified; E66.9 Obesity, unspecified; M85.80 Other specified disorders of bone density and structure, unspecified site; G47.33 Obstructive sleep apnea (adult) (pediatric); Z99.89 Dependence on other enabling machines and devices; Z79.899 Other long term (current) drug therapy; Z98.890 Other specified postprocedural states
CPT/HCPCS: 23472; 36415; 73020; 80048; 85025; 86850; 86900; 86901; 87640; 87641; 88304; 88305; 88311; 94640; 97166; C1713; C1776; J0131; J0665; J0690; J1100; J2003; J2250; J2405; J2704; J3010; J7120

== ENCOUNTER → 2025-08-28 08:27 | Outpatient (BNV) | payer MEDICARE, SELFPAY | PROVIDERS: PCP Internal Medicine; Visit Provider Orthopaedic Surgery | DX: Z47.1 Aftercare following joint replacement surgery (principal); Z96.612 Presence of left artificial shoulder joint | CPT/HCPCS: 23472; 99024; G0180 ==

== ENCOUNTER → 2025-08-28 08:27 | Outpatient (BNV) | payer MEDICARE, SELFPAY | PROVIDERS: PCP Internal Medicine; Visit Provider Physician Assistant | DX: Z96.612 Presence of left artificial shoulder joint (principal) | CPT/HCPCS: 99222 ==

== ENCOUNTER → 2025-08-28 16:39 | Outpatient (BNV) | payer MEDICARE, SELFPAY | PROVIDERS: PCP Internal Medicine; Visit Provider Radiology Diagnostic Ultrasound | DX: M25.512 Pain in left shoulder (principal); Z96.612 Presence of left artificial shoulder joint | CPT/HCPCS: 73020 ==

== ENCOUNTER 2025-09-13 08:20 | Outpatient (REF) | payer MEDICARE, SELFPAY ==
--- NOTE | ~2025-09-13 | XR_ITS ---
CLINICAL HISTORY: M25.512 - Pain in left shoulder 3 view left shoulder Comparison: CR/SR - XR SHOULDER 1 VIEW LEFT - 08/28/25 16:48 EDT Findings: Left shoulder arthroplasty is present. 2.1 cm osseous fragment is seen adjacent to the superolateral femoral head component. Surgical phillip are noted. IMPRESSION: 1. Left shoulder arthroplasty with 2.1 cm osseous fragment adjacent to the superolateral femoral head component. This document has been electronically signed by: Mihaela Brady on 09/14/2025 10:14:23
== END 2025-09-13 08:21 | disposition home or self-care (01) ==
LOC: HO.HOSX 08:20
PROVIDERS: Visit Provider Physician Assistant
DX: Z47.1 Aftercare following joint replacement surgery (principal); Z96.612 Presence of left artificial shoulder joint
CPT/HCPCS: 73030; 99212

== ENCOUNTER 2025-09-13 09:20 | Outpatient (AMB) | payer MEDICARE, SELFPAY ==
--- NOTE | 2025-09-13 09:51 | MHC.OFFVIS ---
Intake Visit Reasons: 2WKPO: L TSA w/NE 08/28/25 Intake Note: Cady is a 79 year old female who presents today post operatively after undergoing a left total shoulder arthroplasty, performed by Dr. Tolliver on 08/28/25. Patient reports much better than before surgery. She has questions regarding her sling wear. Complaints of right shoulder discomfort after her surgery. Allergies Seasonal Allergies Allergy (Intermediate, Verified 09/13/25 10:06) Nasal congestion Medication List - Last Reconciled 09/13/25 by Piedad Rivas PA-C acetaminophen 650 mg PO Q6H PRN aspirin 325 mg PO BID 42 days celecoxib 200 mg PO BID 30 days cholecalciferol (vitamin D3) 50 mcg PO QAM docusate sodium 100 mg PO BID 14 days fexofenadine 180 mg PO BEDTIME lisinopril-hydrochlorothiazide 10-12.5 mg 1 tab PO QAM multivitamin 1 tab PO QAM ondansetron 4 mg PO Q6H PRN 7 days oxycodone 5 mg PO Q4H PRN 7 days triamcinolone acetonide (Nasacort) 2 sprays intranasal BID HPI HPI 2WKPO: L TSA w/NE 08/28/25: Details: 79-year-old female presents to the office today for left total shoulder arthroplasty on 08/28/[address] Tolliver. She has seen occupational therapy and also physical therapy at home and they provided her with limited exercises. He continues to wear the sling. She states her right shoulder is hurting her because of overuse and how she was sleeping. COUNT INCLUDES THE [facility] Medical History [place] (hard of hearing) Pituitary adenoma Osteopenia Anxiety Elevated cholesterol FIONA on CPAP Primary osteoarthritis, left shoulder Hypertension Loose body in left shoulder Surgical History Hx of bilateral cataract extraction History of esophagogastroduodenoscopy (EGD) H/O colonoscopy Hx of eye surgery S/P arthroscopy of left shoulder (~07/03/20) Family History Father No problems noted. Mother No problems noted. Social History Household Members: None Housing: House Are you a primary career development coordinator to a significant other at home: No Do you presently have visiting nurse or other home services: No Comment: advised of trip hazard Patient Tobacco Use Status: Never used Tobacco service: No Current occupational status: retired Current occupation: Right Handed Review of Systems Const All systems reviewed & are unremarkable except as noted in HPI and below Physical Exam Extrem Other: Left shoulder incision is clean dry and intact no surrounding erythema or drainage. Neurovascularly intact Results Reviewed Results Reviewed: X-rays of the left shoulder obtained in the office today and reviewed by me along with Dr. Tolliver and shoulder prosthesis appears to be stable Assessment & Plan Assessment & Plan (1) Status post total replacement of left shoulder: Code(s): Z96.612 - Presence of left artificial shoulder joint Category: Surgical Plan: John removed today Steri-Strips applied. The patient will continue working with occupational therapy and physical therapy to improve range of motion at the level of the body. No positions away from the body or above shoulder height. No pushing off and no external rotation beyond neutral. Periscapular strengthening and postural training. Patient was reminded she needs to wear the sling for another 4 weeks. No driving until 6 weeks postop. They will return in 4 weeks for routine follow up, sooner if needed. Orders: Orders XR shoulder LT min 2V Today M25.512 - Pain in left shoulder Coding Level of Care Code Global (67198) Diagnoses Status post total replacement of left shoulder Z96.612
--- OUTSIDE RECORDS SUMMARY | 2025-09-13 10:21 | XMS_ITS | Clinical Summary ---
Author Organization [facility] Address [address] [place] [address] Phone Care Team Providers Care Mental Hygiene Consultant Name Role Phone Jimenez Snow MD [...] reflex to direct LDL; Future Pituitary adenoma ([facility] V24, [facility] V28) 09/2023 Other viral warts 06/05/2020 Impingement syndrome of left shoulder region Right carpal tunnel syndrome 03/29/2019 Ganglion cyst of flexor tendon sheath of finger, right 02/01/2019 Encounters Date Type Department Care Team Description 06/25/2025 10:00 AM EDT Consult Adult Medicine [address] [phone] Jimenez Snow MD Pre-op exam (Primary Dx) from Last 3 Months Immunizations Immunization Administration [...] your loved ones. For example, child and family therapist or elderly care for an older adult? [...] 1:15 PM EST Appointment Bone Density - [address] [phone] 11/06/2025 9:30 AM EST Office Visit Adult Medicine East - [address] [phone] Jimneez Snow MD [address] [place], [place] Health Maintenance Due Date Last Done [...] CBC auto differential (06/25/2025 9:01 AM EDT) [facility] Signature WBC 4.2(L) 4.8 - 10.8 K/mcL LAB HEMETOLOGY METHOD 06/25/2025 10:36 AM EDT [facility] RBC 4.60 3.80 - 4.80 M/[facility] LAB HEMETOLOGY METHOD 06/25/2025 10:36 AM EDT [facility] Hemoglobin 14.3 11.5 - 16.0 g/dL LAB HEMETOLOG[facility] Hematocrit 42.6 35.0 - 47.0 % LAB HEMETOLOGY METHOD 06/25/2025 10:[facility] MCV 92.0 79.0 - 98.0 FL LAB HEMETOLOGY METHOD 06/25/2025 10:36 AM [facility] MCH 30.9 27.0 - 32.0 pcg LAB HEMETOLOGY METHOD 06/25/2025 10:36 AM [facility] MCHC 33.6 32.0 - 37.0 g/dL LAB HEMETOLOGY METHOD 06/25/2025 10:36 AM [facility] RDW 13.0 11.0 - 15.0 % LAB HEMETOLOGY METHOD 06/25/2025 10:36 AM [facility] Platelets 227 130 - 400 K/mcL LAB HEMETOLOGY METHOD 06/25/2025 10:36 AM [facility] MPV 11.1(H) 7.0 - 11.0 FL LAB HEMETOLOGY METHOD 06/25/2025 10:36 AM [facility] NRBC 0.0 <1.0 % LAB HEMETOLOGY METHOD 06/25/2025 10:36 AM [facility] NRBC Absolute 0.00 <0.10 K/mcL LAB HEMETOLOGY METHOD 06/25/2025 10:36 AM [facility] Neutrophils Relative 59.4 % LAB HEMETOLOGY METHOD 06/25/2025 10:36 AM [facility] Lymphocytes Relative 24.8 % LAB HEMETOLOGY METHOD 06/25/2025 10:36 AM [facility] Monocytes Relative 10.1 % LAB HEMETOLOGY METHOD 06/25/2025 10:36 AM [facility] Eosinophils Relative 4.8 % LAB HEMETOLOGY METHOD 06/25/2025 10:36 AM [facility] Basophils Relative 0.7 % LAB HEMETOLOGY METHOD 06/25/2025 10:36 AM [facility] Immature Granulocytes Relative 0.2 % LAB HEMETOLOGY METHOD 06/25/2025 10:36 AM EDT [facility] Neutrophils Absolute 2.46 1.50 - 7.00 K/mcL LAB HEMETOLOGY METHOD 06/25/2025 10:36 AM EDT [facility] Lymphocytes Absolute 1.03 1.00 - 5.00 K/mcL LAB HEMETOLOGY METHOD 06/25/2025 10:36 AM EDT [facility] Monocytes Absolute 0.42 0.20 - 1.00 K/mcL LAB HEMETOLOGY METHOD 06/25/2025 10:36 AM EDT [facility] Eosinophils Absolute 0.20 0.00 - 0.50 K/mcL LAB HEMETOLOGY [facility] Basophils Absolute 0.03 0.00 - 0.20 K/mcL LAB HEMETOLOGY METHOD 06/25/2025 10:[facility] Immature Granulocytes Absolute 0.01 0.00 - 0.03 K/[facility] LAB HEMETOLOGY METHOD 06/25/2025 10:36 AM [facility] Blood Venous blood specimen / Unknown Venipuncture / Unknown 06/25/2025 9:01 AM EDT 06/25/2025 9:01 AM EDT Jimenez Snow MD LAB BLOOD ORDERABLES F inal Result [facility] [address] [place] [address], * (ABNORMAL) Basic metabolic panel (06/25/2025 9:01 AM EDT) Sodium 142 133 - 145 mmol/L LAB CHEMISTRY METHOD 06/25/2025 1:48 PM EDT [facility] Potassium 3.7 3.5 - 5.5 mmol/L LAB CHEMISTRY METHOD 06/25/2025 1:48 PM EDT [facility] Chloride 107 96 - 110 mmol/L LAB CHEMISTRY METHOD 06/25/2025 1:48 PM [facility] CO2 29 21 - 32 mmol/L LAB CHEMISTRY METHOD 06/25/2025 1:48 PM [facility] Anion Gap 6 3 - 11 LAB CHEMISTRY METHOD 06/25/2025 1:48 PM EDT [facility] Glucose 108(H) 70 - 100 mg/dL LAB CHEMISTRY METHOD 06/25/2025 1:48 PM [facility] BUN 21 5 - 25 mg/dL LAB CHEMISTRY METHOD 06/25/2025 1:48 PM [facility] Creatinine 0.79 0.50 - 1.10 mg/dL LAB CHEMISTRY METHOD 06/25/2025 1:48 PM [facility] eGFR 76 >=60 mL/min/1. 73m2 LAB CHEMISTRY METHOD 06/25/2025 1:48 PM T [facility] Comment:Calculation based on the Chronic Kidney Disease Epidemiology Collaboration (CKD-EPI) equation refit without adjustment for race. BUN/Creatinine Ratio 26.6 LAB CHEMISTRY METHOD 06/25/2025 1:48 PM [facility] Calcium 9.3 8.5 - 10.5 mg/dL LAB CHEMISTRY METHOD 06/25/2025 1:48 PM [facility] Blood Venous blood specimen / Unknown Venipuncture / Unknown 06/25/2025 9:01 AM EDT 06/25/2025 9:01 AM EDT us Jimenez Snow MD LAB BLOOD ORDERABLES F inal Result [facility] [address] [place] [address], [place] [phone] * Lipid panel with reflex to direct LDL (05/29/2025 10:53 AM EDT) Cholesterol 188 0 - 200 mg/dL LAB CHEMISTRY METHOD 05/29/2025 6:21 PM EDT [facility] Triglycerides 76 0 - 150 mg/dL LAB CHEMISTRY METHOD 05/29/2025 6:21 PM EDT [facility] HDL 85 >=40 mg/dL LAB CHEMISTRY METHOD 05/29/2025 6:21 PM EDT [facility] LDL Calculated 88 0 - 100 mg/dL LAB CHEMISTRY METHOD 05/29/2025 6:21 PM EDT [facility] VLDL Cholesterol Sam 15.2 mg/dL LAB CHEMISTRY METHOD 05/29/2025 6:21 PM EDT [facility] Non HDL Chol. (LDL+VLDL) 103 <145 mg/dL LAB CHEMISTRY METHOD 05/29/2025 6:21 PM EDT [facility] Chol/HDL Ratio 2.2 0.0 - 4.4 LAB CHEMISTRY METHOD 05/29/2025 6:21 PM EDT [facility] Blood Venous blood specimen / Unknown Venipuncture / Unknown 05/29/2025 10:53 AM EDT 05/29/2025 10:53 AM EDT Jimenez Snow MD LAB BLOOD ORDERABLES F inal Result [facility] [address] [place] [address], * Hepatitis C antibody (11/08/2024 9:50 AM EST) Hepatitis C Antibody Negative Negative LAB CHEMISTRY METHOD 11/08/2024 1:08 PM EST [facility] Blood Venous blood specimen / Unknown Venipuncture / Unknown 11/08/2024 9:50 AM EST 11/08/2024 9:50 AM EST us Jimenez Snow MD LAB BLOOD ORDERABLES F inal Result [facility] [place] [facility] [address] [place] [address], [place] [phone] * DXA BONE DENSITY STUDY 1+ SITS [...] Maintenance Insurance [employer] MEDICARE Care Teams Mental Hygiene Consultant Relationship Specialty Start Date End Date Jimenez Snow MD [address] [place] [address] PCP - General 10/27/22
--- OUTSIDE RECORDS SUMMARY | 2025-09-13 10:21 | XMS_ITS | Clinical Summary ---
Author Organization [facility] Address [address] [place] [id number] Phone Care Team Providers Care Crystal Mounter Name Role Phone Cornelius Hughes MD Primary [...] Devices Not on file Insurance MEDICARE REPLACEMENT [place] [id number] MEDICARE REPLACEMENT MEDICARE REPLACEMENT MEDICARE REPLACEMENT MEDICARE REPLACEMENT MEDICARE REPLACEMENT Member Subscriber Plan / Payer (Ef fective 2018-Present) Name:Cady Martinez Relation to Subscriber:Self Name:Cady Martinez Payer ID:[id number] (NAIC) Type:Medicare Address: [place] [id number] MEDICARE REPLACEMENT Member Subscriber Plan / Payer (Ef fective 2018-Present) Name:Cady Martinez Relation to Subscriber:Self Name:Cady Martinez Payer ID:[id number] (NAIC) Type:Medicare Address: [place] [id number] MEDICARE REPLACEMENT Member Subscriber Plan / Payer (Ef fective 2018-Present) Name:Cady Martinez Relation to Subscriber:Self Name:Cady Martinez Payer ID:[id number] (NAIC) Type:Medicare Address: [place] [id number] MEDICARE REPLACEMENT Care Teams Crystal Mounter Relationship Specialty Start Date End Date Cornelius Hughes MD [address] [place] [address] PCP - General Internal Medicine 11/01/19 Additional Source Comments The information contained in this document represents components of the legal health record. It is not the complete legal health record.[facility]
--- OUTSIDE RECORDS SUMMARY | 2025-09-13 10:21 | XMS_ITS | Clinical Summary ---
Author Organization [employer] Address [address] [facility] [address] [place] [address] Care Team Providers Care Senior Investment Analyst Name Role Phone Unavailable Primary Care Provider [...] patient's age to complete this topic Insurance [facility]
--- OUTSIDE RECORDS SUMMARY | 2025-09-13 10:21 | XMS_ITS | Clinical Summary ---
Author Organization [facility] Address [address] [place] [address] Care Team Providers Care Mushroom Spawn Maker Name Role Phone Cornelius Hughes MD Primary Care Provider [phone]- [phone] Allergies Active Allergy Reactions Criticality Noted Date Comments Seasonal 03/29/2019 Medications Medication Sig Dispensed Refills Start Date End Date Status lisinopril-hydroCHLOROt hiazide (PRINZIDE,ZESTORETIC) tablet 10-12.5 mg 0 01/04/2019 Active Ohjewjrdvnj-Jbdrskbei-E it C-Mn (GLUCOSAMINE 1500 COMPLEX PO) Take [...] age to complete this topic Care Teams Mushroom Spawn Maker Relationship Specialty Start Date End Date Cornelius Hughes MD [address] [address] PCP - General Internal Medicine 01/17/19
== END 2025-09-13 10:50 | disposition home or self-care (01) ==
LOC: HO.HOS 09:20
PROVIDERS: PCP Internal Medicine; Visit Provider Physician Assistant
DX: Z96.612 Presence of left artificial shoulder joint (principal)
CPT/HCPCS: 99024

== ENCOUNTER → 2025-09-13 09:39 | Outpatient (BNV) | payer MEDICARE, SELFPAY | PROVIDERS: Visit Provider Radiology Vascular & Interventional Radiology | DX: M25.512 Pain in left shoulder (principal); Z96.612 Presence of left artificial shoulder joint | CPT/HCPCS: 73030 ==

== ENCOUNTER 2025-09-24 14:55 | Outpatient (AMB) | payer MEDICARE, SELFPAY ==
--- NOTE | 2025-09-24 15:18 | MHC.OFFVIS ---
Intake Visit Reasons: Site Check: L TSA w/NE 08/28/25 Intake Note: Cady is a 79 year old female who presents today for a unplanned visit due to concerns about redness at the operative site. Patient was being seen with the VNA who expressed concerns of redness/infection. While looking at the shoulder it appears that she has a bandage shaped area of redness, the incision looks well and non irritated with no drainage. Allergies Seasonal Allergies Allergy (Intermediate, Verified 09/13/25 10:06) Nasal congestion HPI HPI Site Check: L TSA w/NE 08/28/25: Details: Cady is a 79 year old female who presents today for a unplanned visit due to concerns about redness at the operative site. Patient was being seen with the VNA who expressed concerns of redness/infection. While looking at the shoulder it appears that she has a bandage shaped area of redness, the incision looks well and non irritated with no drainage. No other acute complaints or concerns at this time. Of note, the redness does appear more consistent with an allergic or inflammatory reaction than infection. PFSH Medical History [place] (hard of hearing) Pituitary adenoma Osteopenia Anxiety Elevated cholesterol FIONA on CPAP Primary osteoarthritis, left shoulder Hypertension Loose body in left shoulder Surgical History Hx of bilateral cataract extraction History of esophagogastroduodenoscopy (EGD) H/O colonoscopy Hx of eye surgery S/P arthroscopy of left shoulder (~07/03/20) Family History Father No problems noted. Mother No problems noted. Social History Household Members: None Housing: House Are you a primary eye care professional to a significant other at home: No Do you presently have visiting nurse or other home services: No Comment: advised of trip hazard Patient Tobacco Use Status: Never used Tobacco service: No Current occupational status: retired Current occupation: Right Handed Review of Systems Const All systems reviewed & are unremarkable except as noted in HPI and below Physical Exam Extrem Other: Incision on left shoulder clean, dry, intact There is some surrounding erythema that appears to be more consistent with dermatitis than any cellulitis or infectious process No evidence of infection Patient is able to flex and extend the digits of the left hand without difficulty Compartments soft, nontender Distal sensation intact Capillary refill brisk Assessment & Plan Assessment & Plan (1) Status post total replacement of left shoulder: Code(s): Z96.612 - Presence of left artificial shoulder joint Category: Surgical Plan 1. Status post left reverse total shoulder replacement DOS 08/28/2025 Patient is educated that it is likely that this is an allergic or inflammatory reaction, does not appear consistent with any sort of infectious process Dressing changed in the office today without issue Patient is educated that she can use ipbm-[id number]-[id number] anti-inflammatory creams to help with this reaction Patient understands this is amenable to this plan Follow-up for previously scheduled appointment, sooner with any acute concerns Coding Level of Care Code Global (55081) Diagnoses Status post total replacement of left shoulder Z96.612
== END 2025-09-24 15:18 | disposition home or self-care (01) ==
LOC: HO.HOS 14:55
PROVIDERS: PCP Internal Medicine
DX: Z96.612 Presence of left artificial shoulder joint (principal)
CPT/HCPCS: 99024

== ENCOUNTER → 2025-09-24 14:55 | Outpatient (BNVA) | payer MEDICARE, SELFPAY | PROVIDERS: PCP Internal Medicine | DX: Z48.01 Encounter for change or removal of surgical wound dressing (principal); Z96.612 Presence of left artificial shoulder joint | CPT/HCPCS: 99212 ==

== ENCOUNTER 2025-10-11 13:03 | Outpatient (AMB) | payer MEDICARE, SELFPAY ==
--- NOTE | 2025-10-11 13:10 | A.OFFVIS_ITS ---
Intake Visit Reasons: 6WKPO: L TSA w/NE 08/28/25 Intake Note: Cady is a 79 year old female who presents today for a post operative appointment about 6 weeks s/p Left TSA 08/28/2025. Patient was seen for an unplanned visit on 09/24/25 with concerns of redness and itching - It was determined to be a reaction to the bandage adhesives. Patient reports that over the last few days while trying to get out of a chair, she has had sharp pain felt in the posterior aspet of the shoulder. The pain is short lived but rather intense. She is taking Tylenol for her pain which is helping Allergies Seasonal Allergies Allergy (Intermediate, Verified 10/11/25 13:10) Nasal congestion HPI HPI 6WKPO: L TSA w/NE 08/28/25: Details: Cady is a 79 year old female who presents today for a post operative appointment about 6 weeks s/p Left TSA 08/28/2025. Patient was seen for an unplanned visit on 09/24/25 with concerns of redness and itching - It was determined to be a reaction to the bandage adhesives. Patient reports that over the last few days while trying to get out of a chair, she has had sharp pain felt in the posterior aspet of the shoulder. The pain is short lived but rather intense. She is taking Tylenol for her pain which is helping PFSH Medical History [place] (hard of hearing) Pituitary adenoma Osteopenia Anxiety Elevated cholesterol FIONA on CPAP Primary osteoarthritis, left shoulder Hypertension Loose body in left shoulder Surgical History Hx of bilateral cataract extraction History of esophagogastroduodenoscopy (EGD) H/O colonoscopy Hx of eye surgery S/P arthroscopy of left shoulder (~07/03/20) Family History Father No problems noted. Mother No problems noted. Social History Household Members: None Housing: House Are you a primary housekeeper child care to a significant other at home: No Do you presently have visiting nurse or other home services: No Comment: advised of trip hazard Patient Tobacco Use Status: Never used Tobacco service: No Current occupational status: retired Current occupation: Right Handed Physical Exam Exam Exam: incision is clean dry and intact abduction to 15 degrees. Deltoid intact. Skin intact to touch lateral deltoid. Results Reviewed Results Reviewed: I personally reviewed relevant radiographs. There is a small bony avulsion of the greater tuberosity. Assessment & Plan Assessment & Plan (1) Status post total replacement of left shoulder: Code(s): Z96.612 - Presence of left artificial shoulder joint Category: Surgical Plan: Six weeks status post left total shoulder. She is doing well but radiographs do show a small avulsion fracture of the greater tuberosity. This is not something that would be even remotely treatable with surgery and we will restrict her active abduction is hopes that the rotator cuff will scar down. f/u weeks Orders: Orders XR shoulder LT min 2V Today M25.519 - Pain in unspecified shoulder Coding Level of Care Code Global (84365) Diagnoses Status post total replacement of left shoulder Z96.612
== END 2025-10-11 14:13 | disposition home or self-care (01) ==
LOC: HO.HOS 13:03
PROVIDERS: PCP Internal Medicine; Visit Provider Orthopaedic Surgery
DX: Z96.612 Presence of left artificial shoulder joint (principal)
CPT/HCPCS: 99024

== ENCOUNTER 2025-10-11 13:03 | Outpatient (REF) | payer MEDICARE, SELFPAY ==
--- NOTE | ~2025-10-11 | XR_ITS ---
EXAMINATION: XR SHOULDER, LEFT CLINICAL INFORMATION: M25.519 - Pain in unspecified shoulder COMPARISON: X-ray 09/13/2025 TECHNIQUE: Two views of the left shoulder. FINDINGS: Redemonstrated left shoulder arthroplasty. Redemonstrated 2.2 cm ossific fragment adjacent to the superolateral humeral head prosthesis. No acute periprosthetic fractures. No suspicious perihardware lucency. Acromioclavicular joint is intact. XR/XR shoulder LT min 2V IMPRESSION: Status post left shoulder arthroplasty with 2.2 cm ossific fragment adjacent to the superolateral humeral head component of the prosthesis. Electronically signed by: Marc Moyer MD 10/12/2025 11:46 AM SIMON
--- OUTSIDE RECORDS SUMMARY | 2025-10-11 18:52 | XMS_ITS | Clinical Summary ---
Author Organization [employer] Address [address] [facility] [address] [place] [address] Care Team Providers Care Break Up Worker Name Role Phone Unavailable Primary Care Provider [...] patient's age to complete this topic Insurance [facility]
--- OUTSIDE RECORDS SUMMARY | 2025-10-11 18:52 | XMS_ITS | Clinical Summary ---
Author Organization [facility] Address [address] [place] [address] Care Team Providers Care Supervisor Billposting Name Role Phone Cornelius Hughes MD Primary Care Provider +1- [phone] Allergies Active Allergy Reactions Criticality Noted Date Comments Seasonal 03/29/2019 Medications Medication Sig Dispensed Refills Start Date End Date Status lisinopril-hydroCHLOROt hiazide (PRINZIDE,ZESTORETIC) tablet 10-12.5 mg 0 01/04/2019 Active Fteptnmswls-Wwtkvnztm-A it C-Mn (GLUCOSAMINE 1500 COMPLEX PO) Take [...] age to complete this topic Care Teams Supervisor Billposting Relationship Specialty Start Date End Date Cornelius Hughes MD [address] [address] PCP - General Internal Medicine 01/17/19
== END 2025-10-11 13:04 | disposition home or self-care (01) ==
LOC: HO.HOSX 13:03
PROVIDERS: PCP Internal Medicine; Visit Provider Orthopaedic Surgery
DX: Z47.1 Aftercare following joint replacement surgery (principal); Z96.612 Presence of left artificial shoulder joint
CPT/HCPCS: 73030; 99212

== ENCOUNTER → 2025-10-11 13:29 | Outpatient (BNV) | payer MEDICARE, SELFPAY | PROVIDERS: PCP Internal Medicine; Visit Provider Radiology Diagnostic Ultrasound | DX: M25.512 Pain in left shoulder (principal) | CPT/HCPCS: 73030 ==